=== PATIENT | female | born 1940 | race Caucasian/White ===

== ENCOUNTER 2017-05-03 10:59 | Emergency (ER) | payer OTHER ==
[2017-05-03 11:05] VITALS: TEMP 98; O2SAT 98
[2017-05-03 11:47] LABS: URINE BILIRUBIN NEGATIVE (NEGATIVE); URINE BLOOD NEGATIVE (NEGATIVE); URINE COLOR Straw (YELLOW); URINE GLUCOSE (UA) NORMAL (Normal); URINE KETONE NEGATIVE (NEGATIVE); URINE LEUKOCYTE ESTERASE TRACE Leu/uL (Negative); URINE PROTEIN NEGATIVE (NEGATIVE); URINE UROBILINOGEN NORMAL mg/dL (0.2-1.0); WBC URINE < 1 /hpf (0-5)
--- NOTE | 2017-05-03 12:12 | C.PDOC ---
History Of Present Illness 76 yr old female presents to the ER with complaints of vaginal irritation, itchiness and scant white discharge for the past 2 weeks, which is also associated with dysuria. Patient admits to being seen by PMD 1 week ago and was started on Cipro but no improvements. Patient denies fever, chills, nausea, vomiting, abdominal pain, back pain, hematuria, or any other active complaints. Ambulate to Ed for evaluation, not in any apparent distress. Time Seen by Provider: 05/03/17 11:07 Chief Complaint (Nursing): Female Genitourinary History Per: Patient History/Exam Limitations: no limitations Onset/Duration Of Symptoms: Days (2 weeks) Current Symptoms Are (Timing): Still Present Recent travel outside of the [place]: No Past Medical History Reviewed: Historical Data, Nursing Documentation, Vital Signs Vital Signs: Last Vital Signs Temp 98 F 05/03/17 11:04 Pulse 74 05/03/17 12:26 Resp 16 05/03/17 12:26 BP 145/71 05/03/17 12:26 Pulse Ox 98 05/03/17 12:40 - Medical History PMH: Anxiety, Arthritis, Asthma, Depression, Gastritis, Gall Bladder Disease, HTN, Hypercholesterolemia, Osteoporosis Surgical History: Cholecystectomy Family History: States: No Known Family Hx - Social History Hx Tobacco Use: No Hx Alcohol Use: No Hx Substance Use: No - Immunization History Hx Tetanus Toxoid Vaccination: No Hx Influenza Vaccination: No Hx Pneumococcal Vaccination: No Review Of Systems Except As Marked, All Systems Reviewed And Found Negative. Constitutional: Negative for: Fever, Chills Gastrointestinal: Negative for: Nausea, Vomiting, Abdominal Pain Genitourinary: Positive for: Dysuria, Vaginal Discharge (Scant white discharge) , Other ((+) Vaginal irritation. Itchiness.) Musculoskeletal: Negative for: Back Pain Neurological: Negative for: Weakness, Numbness Physical Exam - Physical Exam Appears: Well, Non-toxic, No Acute Distress Skin: Normal Color, Warm, Dry, No Rash Eye(s): bilateral: PERRL Nose: Normal Throat: No Erythema Gastrointestinal/Abdominal: Soft, No Tenderness, No Distention, No Guarding Back: No CVA Tenderness Pelvic: No Vaginal Bleeding, Vaginal Discharge (SCANT WHITE DISCHARGES), Other ( DIFFUSE ERYTHEMA EXTENDS TO ANAL AREA. SHARPLY DEMORCTAED EDGES. NO EDEMA) Extremity: No Pedal Edema, No Deformity Neurological/Psych: Oriented x3, Normal Speech ED Course And Treatment O2 Sat by Pulse Oximetry: 98 (RA) Pulse Ox Interpretation: Normal Progress Note: On re-eavl, pt is afebrile, hemodynamicalys table. non-toxic. ABd: benign, (-) guarding, (-) rebound, (-) localized tenderness. back: (-) CVA tenderness. : exam c/w vulvovaginitis. No lesions. UA results review (-) . Pt advised on course of ds. ref. to f/u with PMD and BOOMBOAT OPERATOR in 2-3 days for re- eavl. returnb to ED if any worsening or new changes. Medical Decision Making Medical Decision Making: PLAN: * Urinalysis Disposition Counseled Patient/Family Regarding: Studies Performed, Diagnosis, Need For Followup, Rx Given - Disposition Referrals: Nate Stearns DO [Staff Provider] - Disposition: HOME/ ROUTINE Disposition Time: 12:09 Condition: STABLE Additional Instructions: Cool compresses to area Use medication as prescribed Follow up with PMD and BOOMBOAT OPERATOR in 2-3 days for re-evaluation. Return to ED if any worsening or new changes. Prescriptions: Miconazole/Cleanser 17 On Wipe [Monistat 7 Combination Pack] 1 each VG HS #1 kit Instructions: Vulvovaginal Candidiasis (ED) Forms: [employer] (Lao) - Clinical Impression Clinical Impression: Vulvovaginal candidiasis - PA / MANAGER ANIMATION / Resident Statement / has reviewed & agrees with the documentation as recorded. - Scribe Statement The provider has reviewed the documentation as recorded by the Scribe Catherine Camacho All medical record entries made by the Scribe were at my direction and personally dictated by me. I have reviewed the chart and agree that the record accurately reflects my personal performance of the history, physical exam, medical decision making, and the department course for this patient. I have also personally directed, reviewed, and agree with the discharge instructions and disposition.
[2017-05-03 12:27] VITALS: BP 145/71; PULSE 74; RESP 16
== END 2017-05-03 12:26 | disposition home or self-care (01) ==
LOC: C.ER 10:59
DX: B37.3 Candidiasis of vulva and vagina (principal)

== ENCOUNTER 2017-06-14 13:33 | Inpatient (IN) | payer OTHER ==
--- NOTE | 2017-06-14 14:17 | C.PDOC ---
History Of Present Illness 76F c/o palpitations, lightheadedness, generalized weakness w assoc blurry vision, headache for the last 2 days. when asked if she has had these sx before she admits to having them for at least 5 years and attributes them to "a lot of nerves." she says she came today because her sx seemed worse today than usual. Time Seen by Provider: 06/14/17 13:50 Chief Complaint (Nursing): Palpitations Past Medical History Vital Signs: Last Vital Signs Temp 97.8 F 06/14/17 13:42 Pulse 70 06/14/17 17:15 Resp 14 06/14/17 17:15 BP 146/76 06/14/17 17:15 Pulse Ox 99 06/14/17 17:15 - Medical History PMH: Anxiety, Arthritis, Asthma, Depression, Gastritis, Gall Bladder Disease, HTN, Hypercholesterolemia, Osteoporosis Denies: Diabetes, Hepatitis, HIV, Chronic Kidney Disease, Seizures, Sexually Transmitted Disease Surgical History: Cholecystectomy Family History: States: Other Other Family History: nc - Social History Hx Tobacco Use: No Hx Alcohol Use: No Hx Substance Use: No - Immunization History Hx Tetanus Toxoid Vaccination: No Hx Influenza Vaccination: No Hx Pneumococcal Vaccination: No Review Of Systems Constitutional: Negative for: Fever, Chills Cardiovascular: Positive for: Palpitations, Light Headedness. Negative for: Chest Pain, Edema Respiratory: Negative for: Cough, Shortness of Breath, Hemoptysis Gastrointestinal: Negative for: Nausea, Vomiting, Abdominal Pain Neurological: Positive for: Headache. Negative for: Weakness, Numbness Psych: Positive for: Anxiety. Negative for: Depression Physical Exam - Physical Exam Appears: Well, Non-toxic Skin: Warm, Dry Head: Atraumatic Eye(s): bilateral: PERRL, EOMI Nose: No Epistaxis Oral Mucosa: Moist Neck: Normal ROM Cardiovascular: Rhythm Regular, No Murmur Respiratory: No Decreased Breath Sounds, No Accessory Muscle Use, No Rales, No Rhonchi, No Stridor, No Wheezing Gastrointestinal/Abdominal: Soft, No Tenderness Extremity: No Calf Tenderness, No Swelling Pulses: Left Radial: Normal, Right Radial: Normal Neurological/Psych: Oriented x3, Normal Cranial Nerves, No Cerebellar Signs, Normal Motor, Normal Sensation, Other (no focal deficits) ED Course And Treatment - Laboratory Results Result Diagrams: 06/14/17 14:17 06/14/17 15:24 O2 Sat by Pulse Oximetry: 100 Medical Decision Making Medical Decision Making: ct head- PROCEDURE: CT HEAD WITHOUT CONTRAST. HISTORY: Dizziness COMPARISON: None available. TECHNIQUE: Axial computed tomography images were obtained through the head/brain without intravenous contrast. Radiation dose: Total exam DLP = 813.06 mGy-cm. This CT exam was performed using one or more of the following dose reduction techniques: Automated exposure control, adjustment of the mA and/or kV according to patient size, and/or use of iterative reconstruction technique. FINDINGS: HEMORRHAGE: No intracranial hemorrhage. BRAIN: Lee-white matter differentiation is preserved. There is no mass, mass effect or abnormal extra-axial fluid collection there is no territorial infarction. VENTRICLES: There is mild age-related global parenchymal volume loss and proportionate enlargement of the ventricles and cortical sulci. . CALVARIUM: The skull base and calvarium are normal. PARANASAL SINUSES: Predominantly clear. MASTOID AIR CELLS: There is cerumen in bilateral external auditory canals. The left mastoid air cells are underdeveloped. OTHER FINDINGS: None. IMPRESSION: No acute intracranial abnormality. If there is a persistent focal neurologic deficit and an ongoing clinical concern for acute infarction, an MRI of the brain without intravenous contrast would be a more sensitive modality for evaluation of hyperacute/acute ischemic infarction. Mild age-related global parenchymal volume loss. Disposition - Disposition Disposition: HOSPITALIZED
[2017-06-14 14:20] LABS: BASO % 0.8 % (0.0-2.0); EOS # 0.3 K/uL (0.0-0.7); EOS % 7.8 % (0.0-4.0); HEMATOCRIT 39.2 % (34.0-47.0); LYMPH # 1.5 K/uL (1.0-4.3); LYMPH % 35.8 % (20.0-40.0); MEAN CELL VOLUME 87.6 fL (81.0-99.0); MEAN CORPUSCULAR HEMOGLOBIN 29.7 pg (27.0-31.0); MEAN CORPUSCULAR HGB CONC 33.9 g/dL (33.0-37.0); MEAN PLATELET VOLUME 9.1 fL (7.2-11.7); MONO # 0.4 K/uL (0.0-0.8); MONO % 8.8 % (0.0-10.0); NRBC % 0.1 % (0.0-2.0); WHITE BLOOD COUNT 4.3 K/uL (4.8-10.8)
--- NOTE | 2017-06-14 14:48 | CT ---
PROCEDURE: CT HEAD WITHOUT CONTRAST. HISTORY: Dizziness COMPARISON: None available. TECHNIQUE: Axial computed tomography images were obtained through the head/brain without intravenous contrast. Radiation dose: Total exam DLP = 813.06 mGy-cm. This CT exam was performed using one or more of the following dose reduction techniques: Automated exposure control, adjustment of the mA and/or kV according to patient size, and/or use of iterative reconstruction technique. FINDINGS: HEMORRHAGE: No intracranial hemorrhage. BRAIN: Lee-white matter differentiation is preserved. There is no mass, mass effect or abnormal extra-axial fluid collection there is no territorial infarction. VENTRICLES: There is mild age-related global parenchymal volume loss and proportionate enlargement of the ventricles and cortical sulci. . CALVARIUM: The skull base and calvarium are normal. PARANASAL SINUSES: Predominantly clear. MASTOID AIR CELLS: There is cerumen in bilateral external auditory canals. The left mastoid air cells are underdeveloped. OTHER FINDINGS: None. IMPRESSION: No acute intracranial abnormality. If there is a persistent focal neurologic deficit and an ongoing clinical concern for acute infarction, an MRI of the brain without intravenous contrast would be a more sensitive modality for evaluation of hyperacute/acute ischemic infarction. Mild age-related global parenchymal volume loss.
[2017-06-14 15:43] LABS: CHLORIDE 101 mmol/L (98-107); POTASSIUM 4.1 mmol/L (3.6-5.2); SODIUM 137 mmol/L (132-148)
[2017-06-14 15:45] LABS: GFR AFRICAN-AMERICAN > 60
[2017-06-14 15:46] LABS: ALB/GLOB RATIO 1.1 (1.0-2.1); ALKALINE PHOSPHATASE 58 U/L (38-126); ALT/SGPT 29 U/L (9-52); AST/SGOT 23 U/L (14-36); BILIRUBIN,TOTAL 0.7 mg/dL (0.2-1.3); BLOOD UREA NITROGEN 15 mg/dL (7-17); CALCIUM 9.4 mg/dl (8.6-10.4); CARBON DIOXIDE 23 mmol/L (22-30); GLUCOSE,RANDOM 104 mg/dL (65-105); TOTAL PROTEIN 8.8 g/dL (6.3-8.3)
[2017-06-14 16:21] LABS: RBC URINE < 1 /hpf (0-3); TRANSITIONAL EPITHIAL < 1 /hpf (0-3); URINE BACTERIA RARE (<OCC); URINE BILIRUBIN NEGATIVE (NEGATIVE); URINE BLOOD NEGATIVE (NEGATIVE); URINE COLOR Straw (YELLOW); URINE GLUCOSE (UA) NORMAL (Normal); URINE KETONE NEGATIVE (NEGATIVE); URINE PROTEIN NEGATIVE (NEGATIVE); URINE UROBILINOGEN NORMAL mg/dL (0.2-1.0); WBC URINE 4 /hpf (0-5)
[2017-06-14 16:24] LABS: URINE LEUKOCYTE ESTERASE TRACE Leu/uL (Negative)
[2017-06-14] MEDS ORDERED: DiphenhydrAMINE 50 mg/ml Inj IVP STA (16:31)
[2017-06-14] MEDS ORDERED: DiphenhydrAMINE 50 mg/ml Inj ONE (16:54)
[2017-06-14] MEDS ORDERED: Pneumococcal 23-Valent Vaccine IM ONE (19:29)
[2017-06-14] MEDS ORDERED: Albuterol HFA 90 mcg/actuation (8 g) INH PRN (19:39)
--- NOTE | 2017-06-14 20:22 | CP.PCM.CON ---
History of Present Illness - History of Present Illness History of Present Illness: 76 F with hx of HTN and depression admitted for chest pain and dizziness Past Patient History - Past Medical History & Family History Past Medical History?: Yes - Past Social History Smoking Status: Never Smoked - CARDIAC Hx Cardiac Disorders: Yes Hx Hypercholesterolemia: Yes Hx Hypertension: Yes - PULMONARY Hx Respiratory Disorders: Yes Hx Asthma: Yes - NEUROLOGICAL Hx Neurological Disorder: No Hx Seizures: No - HEENT Hx HEENT Problems: Yes Hx Cataracts: Yes (surgery) - RENAL Hx Chronic Kidney Disease: No - ENDOCRINE/METABOLIC Hx Endocrine Disorders: No - HEMATOLOGICAL/ONCOLOGICAL Hx Blood Disorders: No Hx Human Immunodeficiency Virus (HIV): No - INTEGUMENTARY Hx Dermatological Problems: No - MUSCULOSKELETAL/RHEUMATOLOGICAL Hx Musculoskeletal Disorders: Yes Hx Arthritis: Yes Hx Falls: No Hx Osteoporosis: Yes - GASTROINTESTINAL Hx Gastrointestinal Disorders: Yes Hx Gall Bladder Disease: Yes Hx Gastritis: Yes - GENITOURINARY/GYNECOLOGICAL Hx Genitourinary Disorders: No Hx Sexually Transmitted Disorders: No (candidiasis) - PSYCHIATRIC Hx Psychophysiologic Disorder: Yes Hx Anxiety: Yes Hx Depression: Yes Hx Substance Use: No - SURGICAL HISTORY Hx Surgeries: Yes Hx Cholecystectomy: Yes - ANESTHESIA Hx Anesthesia: Yes Hx Anesthesia Reactions: No Meds Allergies/Adverse Reactions: Allergies Allergy/AdvReac Type Severity Reaction Status Date / Time No Known Allergies Allergy Verified 05/03/17 11:25 - Medications Medications: Current Medications Albuterol (Ventolin Hfa 90 Mcg/Actuation (8 G)) 2 puff INH Q4 PRN PRN Reason: Shortness of Breath Alprazolam (Xanax) 0.25 mg PO Q8 PRN PRN Reason: Anxiety Stop: 06/21/17 19:40 Aspirin (Aspirin Chewable) 81 mg PO DAILY [facility] Clopidogrel Bisulfate (Plavix) 75 mg PO DAILY [facility] Hydrochlorothiazide (Microzide) 12.5 mg PO DAILY [facility] Lisinopril (Zestril) 20 mg PO DAILY [facility] Metoprolol Succinate (Toprol Xl) 50 mg PO DAILY [facility] Pantoprazole Sodium (Protonix Ec Tab) 40 mg PO DAILY [facility] Rosuvastatin Calcium (Crestor) 10 mg PO DAILY [facility] Sertraline HCl (Zoloft) 50 mg PO BID [facility] Zolpidem Tartrate (Ambien) 5 mg PO HS [facility] Results - Vital Signs Recent Vital Signs: Last Vital Signs Temp 98.1 F 06/14/17 17:54 Pulse 80 06/14/17 18:55 Resp 20 06/14/17 17:54 BP 153/78 H 06/14/17 17:54 Pulse Ox 98 06/14/17 17:54 - Labs Result Diagrams: 06/14/17 14:17 06/14/17 15:24 Labs: Laboratory Results - last 24 hr 06/14/17 06/14/17 06/14/17 14:17 14:17 15:24 WBC 4.3 L RBC 4.47 Hgb 13.3 Hct 39.2 MCV 87.6 MCH 29.7 MCHC 33.9 RDW 14.0 Plt Count 173 MPV 9.1 Neut % (Auto) 46.8 L Lymph % (Auto) 35.8 [place] % (Auto) 8.8 Eos % (Auto) 7.8 H Baso % (Auto) 0.8 Neut # 2.0 Lymph # 1.5 [place] # 0.4 Eos # 0.3 Baso # 0.0 Sodium 137 Potassium 4.1 Chloride 101 Carbon Dioxide 23 Anion Gap 18 BUN 15 Creatinine 0.8 Est GFR ( Amer) > 60 Est GFR (Non-Af Amer) > 60 Random Glucose 104 Calcium 9.4 Magnesium 2.0 Total Bilirubin 0.7 AST 23 ALT 29 Alkaline Phosphatase 58 Troponin I < 0.0120 NT-Pro-B Natriuret Pep 46.1 Total Protein 8.8 H Albumin 4.6 Globulin 4.2 H Albumin/Globulin Ratio 1.1 TSH 3rd Generation 2.19 Urine Color Urine Clarity Urine pH Ur Specific [employer] Urine Protein Urine Glucose (UA) Urine Ketones Urine Blood Urine Nitrate Urine Bilirubin Urine Urobilinogen Ur Leukocyte Esterase Urine WBC (Auto) Urine RBC (Auto) Ur Squamous Epith Cells Ur Transition Epith Cell Urine Bacteria 06/14/17 16:13 WBC RBC Hgb Hct MCV MCH MCHC RDW Plt Count MPV Neut % (Auto) Lymph % (Auto) [place] % (Auto) Eos % (Auto) Baso % (Auto) Neut # Lymph # [place] # Eos # Baso # Sodium Potassium Chloride Carbon Dioxide Anion Gap BUN Creatinine Est GFR ( Amer) Est GFR (Non-Af Amer) Random Glucose Calcium Magnesium Total Bilirubin AST ALT Alkaline Phosphatase Troponin I NT-Pro-B Natriuret Pep Total Protein Albumin Globulin Albumin/Globulin Ratio TSH 3rd Generation Urine Color Straw Urine Clarity Clear Urine pH 8.0 Ur Specific [employer] 1.008 Urine Protein Negative Urine Glucose (UA) Normal Urine Ketones Negative Urine Blood Negative Urine Nitrate Negative Urine Bilirubin Negative Urine Urobilinogen Normal Ur Leukocyte Esterase Trace H Urine WBC (Auto) 4 Urine RBC (Auto) < 1 Ur Squamous Epith Cells 3 Ur Transition Epith Cell < 1 Urine Bacteria Rare
[2017-06-15] MEDS: Pantoprazole 40 mg EC Tab PO SCH (10:52)
[2017-06-15] MEDS: Metoprolol Succinate 50 mg XL Tab PO SCH (10:53)
[2017-06-15] MEDS: Enoxaparin 40 mg Syringe SC SCH (10:53)
--- NOTE | 2017-06-15 15:06 | CARD ---
APPROVED REPORT EXAM: Two-dimensional and M-mode echocardiogram with Doppler and color Doppler. M-Mode DIMENSIONS RVDd1.77 (2.1-3.2cm)Left Atrium (MM)4.45 (2.5-4.0cm) IVSd1.07 (0.7-1.1cm)Aortic Root2.54 (2.2-3.7cm) LVDd3.95 (4.0-5.6cm)Aortic Cusp Exc.1.21 (1.5-2.0cm) PWd1.14 (0.7-1.1cm)FS (%) 41 % LVDs2.32 (2.0-3.8cm)LVEF (%)73 (>50%) Mitral Valve MV E Pwzeozhc29.8cm/sMV A Vwjdojse62.7cm/sE/A ratio0.6 TDI E/Lateral E'0.0E/Medial E'0.0 Tricuspid Valve TR Peak [id number]/sTR Peak [id number] LEFT VENTRICLE The left ventricle is normal size. There is normal left ventricular wall thickness. The left ventricular function is normal. The left ventricular ejection fraction is within the normal range. There is normal LV segmental wall motion. Tissue Doppler imaging reveals mild left ventricular diastolic dysfunction. Transmitral Doppler flow pattern is Grade I-abnormal relaxation pattern. No left ventricle thrombus noted on this study. There is no ventricular septal defect visualized. There is no left ventricular aneurysm. There is no mass noted in the left ventricle. RIGHT VENTRICLE The right ventricle is normal size. There is normal right ventricular wall thickness. The right ventricular systolic function is normal. ATRIA The left atrium is mildly dilated. The right atrium size is normal. The interatrial septum is intact with no evidence for an atrial septal defect. AORTIC VALVE The aortic valve is normal in structure. No aortic regurgitation is present. There is no aortic valvular stenosis. There is no aortic valvular vegetation. MITRAL VALVE The mitral valve is normal in structure. There is no mitral valve stenosis. There is no mitral valve regurgitation noted. TRICUSPID VALVE The tricuspid valve is normal in structure. There is no tricuspid valve regurgitation noted. PULMONIC VALVE The pulmonary valve is normal in structure. There is mild pulmonic valvular regurgitation. GREAT VESSELS The aortic root is normal in size. The ascending aorta is normal in size. The pulmonary artery is normal. PERICARDIAL EFFUSION There is no pericardial effusion. <Conclusion> Tissue Doppler imaging reveals mild left ventricular diastolic dysfunction. Transmitral Doppler flow pattern is Grade I-abnormal relaxation pattern. The left atrium is mildly dilated. There is mild pulmonic valvular regurgitation.
--- NOTE | 2017-06-15 17:57 | CP.PCM.HP ---
Past Patient History - Past Medical History & Family History Past Medical History?: Yes - Past Social History Smoking Status: Never Smoked - CARDIAC Hx Cardiac Disorders: Yes Hx Hypercholesterolemia: Yes Hx Hypertension: Yes - PULMONARY Hx Respiratory Disorders: Yes Hx Asthma: Yes - NEUROLOGICAL Hx Neurological Disorder: No Hx Seizures: No - HEENT Hx HEENT Problems: Yes Hx Cataracts: Yes (surgery) - RENAL Hx Chronic Kidney Disease: No - ENDOCRINE/METABOLIC Hx Endocrine Disorders: No - HEMATOLOGICAL/ONCOLOGICAL Hx Blood Disorders: No Hx Human Immunodeficiency Virus (HIV): No - INTEGUMENTARY Hx Dermatological Problems: No - MUSCULOSKELETAL/RHEUMATOLOGICAL Hx Musculoskeletal Disorders: Yes Hx Arthritis: Yes Hx Falls: No Hx Osteoporosis: Yes - GASTROINTESTINAL Hx Gastrointestinal Disorders: Yes Hx Gall Bladder Disease: Yes Hx Gastritis: Yes - GENITOURINARY/GYNECOLOGICAL Hx Genitourinary Disorders: No Hx Sexually Transmitted Disorders: No (candidiasis) - PSYCHIATRIC Hx Psychophysiologic Disorder: Yes Hx Anxiety: Yes Hx Depression: Yes Hx Substance Use: No - SURGICAL HISTORY Hx Surgeries: Yes Hx Cholecystectomy: Yes - ANESTHESIA Hx Anesthesia: Yes Hx Anesthesia Reactions: No Meds Allergies/Adverse Reactions: Allergies Allergy/AdvReac Type Severity Reaction Status Date / Time No Known Allergies Allergy Verified 05/03/17 11:25 Results - Vital Signs Recent Vital Signs: Last Vital Signs Temp 98.4 F 06/15/17 16:00 Pulse 71 06/15/17 16:00 Resp 18 06/15/17 16:00 BP 145/71 06/15/17 16:00 Pulse Ox 98 06/15/17 16:00 - Labs Result Diagrams: 06/14/17 14:17 06/14/17 15:24 Labs: Laboratory Results - last 24 hr 06/15/17 07:10 Troponin I < 0.0120
--- NOTE | 2017-06-15 22:00 | CP.PCM.PN ---
Subjective - Date & Time of Evaluation Date of Evaluation: 06/15/17 Time of Evaluation: 17:30 - Subjective Subjective: Patient admitted for chest pain Stress test Saturday Objective - Vital Signs/Intake and Output Vital Signs (last 24 hours): Temp Pulse Resp BP Pulse Ox 98.4 F 71 18 145/71 98 06/15/17 16:00 06/15/17 21:39 06/15/17 16:00 06/15/17 16:00 06/15/17 16:00 - Medications Medications: Current Medications Acetaminophen (Tylenol 325mg Tab) 650 mg PO Q6 PRN PRN Reason: Pain, Mild (1-3) Last Admin: 06/15/17 20:25 Dose: 650 mg Albuterol (Ventolin Hfa 90 Mcg/Actuation (8 G)) 2 puff INH Q4 PRN PRN Reason: Shortness of Breath Alprazolam (Xanax) 0.25 mg PO Q8 PRN PRN Reason: Anxiety Stop: 06/21/17 19:40 Last Admin: 06/15/17 20:25 Dose: 0.25 mg Aspirin (Aspirin Chewable) 81 mg PO DAILY [facility] Last Admin: 06/15/17 10:53 Dose: 81 mg Clopidogrel Bisulfate (Plavix) 75 mg PO DAILY [facility] Last Admin: 06/15/17 10:53 Dose: 75 mg Enoxaparin Sodium (Lovenox) 40 mg SC DAILY [facility] Last Admin: 06/15/17 10:53 Dose: 40 mg Hydrochlorothiazide (Microzide) 12.5 mg PO DAILY [facility] Last Admin: 06/15/17 10:53 Dose: 12.5 mg Lisinopril (Zestril) 20 mg PO DAILY [facility] Last Admin: 06/15/17 10:52 Dose: 20 mg Metoprolol Succinate (Toprol Xl) 50 mg PO DAILY [facility] Last Admin: 06/15/17 10:53 Dose: 50 mg Pantoprazole Sodium (Protonix Ec Tab) 40 mg PO DAILY [facility] Last Admin: 06/15/17 10:52 Dose: 40 mg Rosuvastatin Calcium (Crestor) 10 mg PO HS [facility] Sertraline HCl (Zoloft) 50 mg PO BID [facility] Last Admin: 06/15/17 18:22 Dose: 50 mg Zolpidem Tartrate (Ambien) 5 mg PO HS [facility] Last Admin: 06/15/17 21:40 Dose: 5 mg - Labs Labs: 06/14/17 14:17 06/14/17 15:24
[2017-06-16] MEDS ORDERED: Influenza Vaccine 60 mcg/0.5 mL SYR (4YR UP) IM ONE (10:00)
[2017-06-16] MEDS: Enoxaparin 40 mg Syringe SC SCH (10:51)
[2017-06-16] MEDS: Metoprolol Succinate 50 mg XL Tab PO SCH (10:51)
[2017-06-16] MEDS: Pantoprazole 40 mg EC Tab PO SCH (10:51)
--- NOTE | 2017-06-16 17:28 | CP.PCM.PN ---
Objective - Vital Signs/Intake and Output Vital Signs (last 24 hours): Temp Pulse Resp BP Pulse Ox 97.9 F 80 18 137/77 98 06/16/17 07:56 06/16/17 17:06 06/16/17 07:56 06/16/17 07:56 06/16/17 12:22 - Medications Medications: Current Medications Acetaminophen (Tylenol 325mg Tab) 650 mg PO Q6 PRN PRN Reason: Pain, Mild (1-3) Last Admin: 06/16/17 05:06 Dose: 650 mg Albuterol (Ventolin Hfa 90 Mcg/Actuation (8 G)) 2 puff INH Q4 PRN PRN Reason: Shortness of Breath Alprazolam (Xanax) 0.25 mg PO Q8 PRN PRN Reason: Anxiety Stop: 06/21/17 19:40 Last Admin: 06/15/17 20:25 Dose: 0.25 mg Aspirin (Aspirin Chewable) [address] [facility] Last Admin: 06/16/17 10:50 Dose: 81 mg Clopidogrel Bisulfate (Plavix) [address] [facility] Last Admin: 06/16/17 10:51 Dose: 75 mg Enoxaparin Sodium (Lovenox) [address] [facility] Last Admin: 06/16/17 10:51 Dose: 40 mg Hydrochlorothiazide (Microzide) 12.[address] [facility] Last Admin: 06/16/17 10:50 Dose: 12.5 mg Lisinopril (Zestril) [address] [facility] Last Admin: 06/16/17 10:51 Dose: 20 mg Metoprolol Succinate (Toprol Xl) [address] [facility] Last Admin: 06/16/17 10:51 Dose: 50 mg Pantoprazole Sodium (Protonix Ec Tab) [address] [facility] Last Admin: 06/16/17 10:51 Dose: 40 mg Rosuvastatin Calcium (Crestor) [address] [facility] Last Admin: 06/15/17 22:30 Dose: 10 mg Sertraline HCl (Zoloft) [address] [facility] Last Admin: 06/16/17 10:51 Dose: 50 mg Zolpidem Tartrate (Ambien) [address] [facility] Last Admin: 06/15/17 21:40 Dose: 5 mg - Labs Labs: 06/14/17 14:17 06/14/17 15:24
[2017-06-16 17:38] VITALS: RESP 20
--- NOTE | 2017-06-16 17:54 | CP.PCM.PN ---
Subjective - Date & Time of Evaluation Date of Evaluation: 06/16/17 Time of Evaluation: 09:45 - Subjective Subjective: Patient seen and evaluated Currently chest pain free For stress test in am Objective - Vital Signs/Intake and Output Vital Signs (last 24 hours): Temp Pulse Resp BP Pulse Ox 98 F 80 20 136/74 97 06/16/17 15:45 06/16/17 17:06 06/16/17 15:45 06/16/17 15:45 06/16/17 15:45 - Medications Medications: Current Medications Acetaminophen (Tylenol 325mg Tab) 650 mg PO Q6 PRN PRN Reason: Pain, Mild (1-3) Last Admin: 06/16/17 05:06 Dose: 650 mg Albuterol (Ventolin Hfa 90 Mcg/Actuation (8 G)) 2 puff INH Q4 PRN PRN Reason: Shortness of Breath Alprazolam (Xanax) 0.25 mg PO Q8 PRN PRN Reason: Anxiety Stop: 06/21/17 19:40 Last Admin: 06/15/17 20:25 Dose: 0.25 mg Aspirin (Aspirin Chewable) 81 mg PO DAILY [facility] Last Admin: 06/16/17 10:50 Dose: 81 mg Clopidogrel Bisulfate (Plavix) 75 mg PO DAILY [facility] Last Admin: 06/16/17 10:51 Dose: 75 mg Enoxaparin Sodium (Lovenox) 40 mg SC DAILY [facility] Last Admin: 06/16/17 10:51 Dose: 40 mg Hydrochlorothiazide (Microzide) 12.5 mg PO DAILY [facility] Last Admin: 06/16/17 10:50 Dose: 12.5 mg Lisinopril (Zestril) 20 mg PO DAILY [facility] Last Admin: 06/16/17 10:51 Dose: 20 mg Metoprolol Succinate (Toprol Xl) 50 mg PO DAILY [facility] Last Admin: 06/16/17 10:51 Dose: 50 mg Pantoprazole Sodium (Protonix Ec Tab) 40 mg PO DAILY [facility] Last Admin: 06/16/17 10:51 Dose: 40 mg Rosuvastatin Calcium (Crestor) 10 mg PO HS [facility] Last Admin: 06/15/17 22:30 Dose: 10 mg Sertraline HCl (Zoloft) 50 mg PO BID [facility] Last Admin: 06/16/17 10:51 Dose: 50 mg Zolpidem Tartrate (Ambien) 5 mg PO HS [facility] Last Admin: 06/15/17 21:40 Dose: 5 mg - Labs Labs: 06/14/17 14:17 06/14/17 15:24
[2017-06-17] MEDS ORDERED: Aminophylline 25 mg/ml Inj ONE (07:21)
[2017-06-17] MEDS: Pantoprazole 40 mg EC Tab PO SCH (13:59)
[2017-06-17] MEDS: Enoxaparin 40 mg Syringe SC SCH (13:59)
[2017-06-17] MEDS: Metoprolol Succinate 50 mg XL Tab PO SCH (14:00)
--- NOTE | 2017-06-17 15:10 | RAD ---
HISTORY: dizzy COMPARISON: 10/24/2014 FINDINGS: LUNGS: No active pulmonary disease. PLEURA: No significant pleural effusion identified, no pneumothorax apparent. CARDIOVASCULAR: Calcification at the aortic knob. OSSEOUS STRUCTURES: No significant abnormalities. VISUALIZED UPPER ABDOMEN: Normal. OTHER FINDINGS: None. IMPRESSION: No active disease.
--- NOTE | 2017-06-17 20:46 | CP.PCM.PN ---
Subjective - Date & Time of Evaluation Date of Evaluation: 06/17/17 Time of Evaluation: 20:46 Objective - Vital Signs/Intake and Output Vital Signs (last 24 hours): Temp Pulse Resp BP Pulse Ox 98.1 F 68 20 124/72 97 06/17/17 15:00 06/17/17 15:30 06/17/17 15:00 06/17/17 15:00 06/17/17 15:00 - Medications Medications: Current Medications Acetaminophen (Tylenol 325mg Tab) 650 mg PO Q6 PRN PRN Reason: Pain, Mild (1-3) Last Admin: 06/16/17 05:06 Dose: 650 mg Albuterol (Ventolin Hfa 90 Mcg/Actuation (8 G)) 2 puff INH Q4 PRN PRN Reason: Shortness of Breath Alprazolam (Xanax) 0.25 mg PO Q8 PRN PRN Reason: Anxiety Stop: 06/21/17 19:40 Last Admin: 06/15/17 20:25 Dose: 0.25 mg Aspirin (Aspirin Chewable) 81 mg PO DAILY [facility] Last Admin: 06/17/17 13:59 Dose: Not Given Clopidogrel Bisulfate (Plavix) 75 mg PO DAILY [facility] Last Admin: 06/17/17 13:59 Dose: Not Given Enoxaparin Sodium (Lovenox) 40 mg SC DAILY [facility] Last Admin: 06/17/17 13:59 Dose: Not Given Hydrochlorothiazide (Microzide) 12.5 mg PO DAILY [facility] Last Admin: 06/17/17 13:59 Dose: Not Given Lisinopril (Zestril) 20 mg PO DAILY [facility] Last Admin: 06/17/17 14:00 Dose: Not Given Metoprolol Succinate (Toprol Xl) 50 mg PO DAILY [facility] Last Admin: 06/17/17 14:00 Dose: Not Given Pantoprazole Sodium (Protonix Ec Tab) 40 mg PO DAILY [facility] Last Admin: 06/17/17 13:59 Dose: Not Given Rosuvastatin Calcium (Crestor) 10 mg PO HS [facility] Last Admin: 06/16/17 21:29 Dose: 10 mg Sertraline HCl (Zoloft) 50 mg PO BID [facility] Last Admin: 06/17/17 14:00 Dose: Not Given Zolpidem Tartrate (Ambien) 5 mg PO HS [facility] Last Admin: 06/16/17 21:29 Dose: 5 mg - Labs Labs: 06/14/17 14:17 06/14/17 15:24
--- NOTE | 2017-06-17 21:43 | CP.PCM.PN ---
Subjective - Date & Time of Evaluation Date of Evaluation: 06/17/17 Time of Evaluation: 16:10 - Subjective Subjective: Patient s/p Stress test and ECHO Normal stress test and Normal EF Non cardiac chest pain Cardiac point of view cleared for discharge Objective - Vital Signs/Intake and Output Vital Signs (last 24 hours): Temp Pulse Resp BP Pulse Ox 98.1 F 68 20 124/72 97 06/17/17 15:00 06/17/17 15:30 06/17/17 15:00 06/17/17 15:00 06/17/17 15:00 - Medications Medications: Current Medications Acetaminophen (Tylenol 325mg Tab) 650 mg PO Q6 PRN PRN Reason: Pain, Mild (1-3) Last Admin: 06/16/17 05:06 Dose: 650 mg Albuterol (Ventolin Hfa 90 Mcg/Actuation (8 G)) 2 puff INH Q4 PRN PRN Reason: Shortness of Breath Alprazolam (Xanax) 0.25 mg PO Q8 PRN PRN Reason: Anxiety Stop: 06/21/17 19:40 Last Admin: 06/15/17 20:25 Dose: 0.25 mg Aspirin (Aspirin Chewable) 81 mg PO DAILY [facility] Last Admin: 06/17/17 13:59 Dose: Not Given Enoxaparin Sodium (Lovenox) 40 mg SC DAILY [facility] Last Admin: 06/17/17 13:59 Dose: Not Given Hydrochlorothiazide (Microzide) 12.5 mg PO DAILY [facility] Last Admin: 06/17/17 13:59 Dose: Not Given Lisinopril (Zestril) 20 mg PO DAILY [facility] Last Admin: 06/17/17 14:00 Dose: Not Given Metoprolol Succinate (Toprol Xl) 50 mg PO DAILY [facility] Last Admin: 06/17/17 14:00 Dose: Not Given Pantoprazole Sodium (Protonix Ec Tab) 40 mg PO DAILY [facility] Last Admin: 06/17/17 13:59 Dose: Not Given Rosuvastatin Calcium (Crestor) 10 mg PO HS [facility] Last Admin: 06/17/17 21:22 Dose: 10 mg Sertraline HCl (Zoloft) 50 mg PO BID [facility] Last Admin: 06/17/17 19:00 Dose: 50 mg Zolpidem Tartrate (Ambien) 5 mg PO HS [facility] Last Admin: 06/16/17 21:29 Dose: 5 mg - Labs Labs: 06/14/17 14:17 06/14/17 15:24
--- NOTE | 2017-06-18 00:33 | CARD ---
APPROVED REPORT Protocol: LEXISCAN Test Type: LEXISCAN STRESS Test Indications: CP Target HR: 142 bpm Resting ECG: normal Resting Heart Rate: 58 bpm Resting Blood Pressure: 122/80mmHg submaximum (85%): 121 bpm TEST SUMMARY PREINFSNHYPERV.06:[id number]/80.0. INFUSIONDOSE 100:300.00.01.060/.0. WZSCLBJVT34:[id number]/80.0. PROCEDURE Pharmacologic stress testing was performed using 0.4mg per 5ml of regadenoson given intravenously over 7-10 seconds. POST EXERCISE Target HR: No Max HR: 60 bpm 72% of Maximum Predicted HR: 142 bpm Exercise duration: 00:30 min:sec, 0 Stage Exercise capacity: 1.0METs Max Blood Pressure: 122/80mmHg Chest Pain: No, none Angina index: 0 Arrhythmia: Yes, atrial premature beats ST Change: No, none Deviation: 0 mm INTERPRETATION Stress EKG Conclusion: Nondiagnostic stress test EXAM: Myocardial Perfusion REST/STRESS Imaging Protocol The imaging protocol used to acquire images was Rest Tc-99m/stress Tc-99m 1 day Rest Spect myocardial perfusion imaging was performed in supine position 40 minutes following the injection of 13.1 mCi of Tc-99 Myoview. Gated Stress Spect was performed 41 minutes after intravenous 32.9 mCi Tc-99 Myoview injection. The images were gated to evaluate regional wall motion and calculate ventricular ejection fraction.Images were reconstructed using backfilter projection method in short horizontal and verticle long axis. Spect slices were generated. RESTING DATA EDV48.41rlAL9.70L/min ESV7.00mlMyocardial Mass94.00g Av. Heart Rate67.00bpm EF85.00% STRESS DATA EDV50.85qoDV2.30L/min ESV7.00mlMyocardial Mass97.00g EF86.00% Regional WT score at stress:0.00 Regional WM score at stress:0.00 Summed WT score at stress:1.00 Av. Heart Rate76.00bpmSummed WM score at stress:0.00 LV Perf. Quant 17 Seg. SSS0.00 17 Seg. SRS0.00 17 Seg. SDS0.00 Stress Defect Extent (% LAD)0.00Rest Defect Extent (% LAD)0.00Rev. Defect Extent (% LAD)0.00 Stress Defect Extent (% LCX)0.00Rest Defect Extent (% LCX)0.00Rev. Defect Extent (% LCX)0.00 Stress Defect Extent (% RCA)0.00Rest Defect Extent (% RCA)0.00Rev. Defect Extent (% RCA)0.00 Stress Defect Extent (% NIKOS)0.00Rest Defect Extent (% NIKOS)0.00Rev. Defect Extent (% NIKOS)0.00 Left Ventricle LV Size/Shape: The left ventricle is normal size. LV Function:Left ventricle systolic function is normal. The Ejection Fraction is 86% up from 85% at rest. Regional Wall Motion:No regional wall motion abnormalities noted. Metabolism/Perfusion There are no perfusion/metabolism defects. Conclusion 1. Left ventricle systolic function is normal. 2. The Ejection Fraction is 86% up from 85% at rest. 3. No regional wall motion abnormalities noted. 4. No ischemia.
[2017-06-18 08:30] VITALS: BP 128/66; PULSE 68; TEMP 98.4; O2SAT 99
[2017-06-18] MEDS: Pantoprazole 40 mg EC Tab PO SCH (09:32)
[2017-06-18] MEDS: Metoprolol Succinate 50 mg XL Tab PO SCH (09:32)
[2017-06-18] MEDS: Enoxaparin 40 mg Syringe SC SCH (09:33)
--- NOTE | 2017-06-18 12:42 | CARD ---
APPROVED REPORT EKG Measurement Heart [id number] DC 180P57 [id number] <Conclusion> Normal sinus rhythm Normal ECG
--- NOTE | 2017-06-18 13:33 | CP.PCM.PN ---
Subjective - Date & Time of Evaluation Date of Evaluation: 06/18/17 Time of Evaluation: 13:32 - Subjective Subjective: PATIENT WAS ADMITTED FOR CHEST PAIN. Patient states that she feels much better and that her breathing has significantly improved. Denies chest pain, cough, shortness of breath, nausea, vomiting and palpitations. Objective - Vital Signs/Intake and Output Vital Signs (last 24 hours): Temp Pulse Resp BP Pulse Ox 98.4 F 68 20 128/66 99 06/18/17 07:00 06/18/17 07:00 06/18/17 07:00 06/18/17 07:00 06/18/17 07:00 - Medications Medications: Current Medications Acetaminophen (Tylenol 325mg Tab) 650 mg PO Q6 PRN PRN Reason: Pain, Mild (1-3) Last Admin: 06/16/17 05:06 Dose: 650 mg Albuterol (Ventolin Hfa 90 Mcg/Actuation (8 G)) 2 puff INH Q4 PRN PRN Reason: Shortness of Breath Alprazolam (Xanax) 0.25 mg PO Q8 PRN PRN Reason: Anxiety Stop: 06/21/17 19:40 Last Admin: 06/15/17 20:25 Dose: 0.25 mg Aspirin (Aspirin Chewable) 81 mg PO DAILY [facility] Last Admin: 06/18/17 09:33 Dose: 81 mg Enoxaparin Sodium (Lovenox) 40 mg SC DAILY [facility] Last Admin: 06/18/17 09:33 Dose: 40 mg Hydrochlorothiazide (Microzide) 12.5 mg PO DAILY [facility] Last Admin: 06/18/17 09:32 Dose: 12.5 mg Lisinopril (Zestril) 20 mg PO DAILY [facility] Last Admin: 06/18/17 09:32 Dose: 20 mg Metoprolol Succinate (Toprol Xl) 50 mg PO DAILY [facility] Last Admin: 06/18/17 09:32 Dose: 50 mg Pantoprazole Sodium (Protonix Ec Tab) 40 mg PO DAILY [facility] Last Admin: 06/18/17 09:32 Dose: 40 mg Rosuvastatin Calcium (Crestor) 10 mg PO HS [facility] Last Admin: 06/17/17 21:22 Dose: 10 mg Sertraline HCl (Zoloft) 50 mg PO BID [facility] Last Admin: 11/14/17 09:32 Dose: 50 mg Zolpidem Tartrate (Ambien) 5 mg PO HS [facility] Last Admin: 06/17/17 22:16 Dose: 5 mg - Labs Labs: 06/14/17 14:17 06/14/17 15:24 - Eye Exam Eye Exam: Normal appearance Pupil Exam: NORMAL ACCOMODATION - Respiratory Exam Respiratory Exam: Clear to Ausculation Bilateral - Cardiovascular Exam Cardiovascular Exam: REGULAR RHYTHM Assessment and Plan - Assessment and Plan (Free Text) Assessment: Patient seen and evaluated Currently chest pain free Normal stress test and Normal EF ; Non cardiac chest pain Cardiac point of view cleared for discharge; PER DR CASON PATIENT IS CLEAR TO DC FOLLOW UP WITH DR HAIRSTON IN A WEEK AT HIS OFFICE -----CALL OFFICE FOR APPOINTMENT FOLLOW UP WITH YOUR PRIMARY CERAMIC TILER DR SEWELL IN A WEEK --CALL OFFICE FOR APPOINTMENT ASK FOR POSSIBLE HOLTER MONITOR OUT PATIENT CONTINUE HOME MEDICATION MED RECS CALL YOUR PMD DR HAIRSTON OR GO THE NEAREST EMERGENCY ROOM IF SYMPTOMS RETURN OR WORSENING
--- NOTE | 2017-06-18 22:02 | CP.PCM.DIS ---
Provider - Provider Date of Admission: 06/15/17 14:24 Attending physician: Durga Flannery MD [facility] Course - Lab Results Lab Results: Most Recent Lab Values WBC 4.3 K/uL (4.8-10.8) L 06/14/17 14:17 RBC 4.47 Mil/uL (3.80-5.20) 06/14/17 14:17 Hgb 13.3 g/dL (11.0-16.0) 06/14/17 14:17 Hct 39.2 % (34.0-47.0) 06/14/17 14:17 MCV 87.6 fL (81.0-99.0) 06/14/17 14: MCH 29.7 pg (27.0-31.0) 06/14/17 14:17 MCHC 33.9 g/dL (33.0-37.0) 06/14/17 14:17 RDW 14.0 % (11.5-14.5) 06/14/17 14:17 Plt Count 173 K/uL (130-400) 06/14/17 14:17 MPV 9.1 fL (7.2-11.7) 06/14/17 14:17 Neut % (Auto) 46.8 % (50.0-75.0) L 06/14/17 14:17 Lymph % (Auto) 35.8 % (20.0-40.0) 06/14/17 14:17 [place]kin % (Auto) 8.8 % (0.0-10.0) 06/14/17 14:17 Eos % (Auto) 7.8 % (0.0-4.0) H 06/14/17 14:17 Baso % (Auto) 0.8 % (0.0-2.0) 06/14/17 14:17 Neut # 2.0 K/uL (1.8-7.0) 06/14/17 14:17 Lymph # 1.5 K/uL (1.0-4.3) 06/14/17 14:17 [place]kin # 0.4 K/uL (0.0-0.8) 06/14/17 14:17 Eos # 0.3 K/uL (0.0-0.7) 06/14/17 14:17 Baso # 0.0 K/uL (0.0-0.2) 06/14/17 14:17 Sodium 137 mmol/L (132-148) 06/14/17 15:24 Potassium 4.1 mmol/L (3.6-5.2) 06/14/17 15:24 Chloride 101 mmol/L (98-107) 06/14/17 15:24 Carbon Dioxide 23 mmol/L (22-30) 06/14/17 15:24 Anion Gap 18 (10-20) 06/14/17 15:24 BUN 15 mg/dL (7-17) 06/14/17 15:24 Creatinine 0.8 mg/dL (0.7-1.2) 06/14/17 15:24 Est GFR ( Amer) > 60 06/14/17 15:24 Est GFR (Non-Af Amer) > 60 06/14/17 15:24 Random Glucose 104 mg/dL (65-105) 06/14/17 15:24 Calcium 9.4 mg/dl (8.6-10.4) 06/14/17 15:24 Magnesium 2.0 mg/dL (1.6-2.3) 06/14/17 15:24 Total Bilirubin 0.7 mg/dL (0.2-1.3) 06/14/17 15:24 AST 23 U/L (14-36) 06/14/17 15:24 ALT 29 U/L (9-52) 06/14/17 15:24 Alkaline Phosphatase 58 U/L (38-126) 06/14/17 15:24 Troponin I < 0.0120 ng/mL (0.00-0.120) 06/15/17 07:10 NT-Pro-B Natriuret Pep 46.1 pg/mL (0-900) 06/14/17 15:24 Total Protein 8.8 g/dL (6.3-8.3) H 06/14/17 15:24 Albumin 4.6 g/dL (3.5-5.0) 06/14/17 15:24 Globulin 4.2 gm/dL (2.2-3.9) H 06/14/17 15:24 Albumin/Globulin Ratio 1.1 (1.0-2.1) 06/14/17 15:24 TSH 3rd Generation 2.19 mIU/L (0.46-4.68) 06/14/17 14:17 Urine Color Straw (YELLOW) 06/14/17 16:13 Urine Clarity Clear (Clear) 06/14/17 16:13 Urine pH 8.0 (5.0-8.0) 06/14/17 16:13 Ur Specific [place] 1.008 (1.003-1.030) 06/14/17 16:13 Urine Protein Negative mg/dL (NEGATIVE) 06/14/17 16:13 Urine Glucose (UA) Normal mg/dL (Normal) 06/14/17 16:13 Urine Ketones Negative mg/dL (NEGATIVE) 06/14/17 16:13 Urine Blood Negative (NEGATIVE) 06/14/17 16:13 Urine Nitrate Negative (NEGATIVE) 06/14/17 16:13 Urine Bilirubin Negative (NEGATIVE) 06/14/17 16:13 Urine Urobilinogen Normal mg/dL (0.2-1.0) 06/14/17 16:13 Ur Leukocyte Esterase Trace Marisol/uL (Negative) H 06/14/17 16:13 Urine WBC (Auto) 4 /hpf (0-5) 06/14/17 16:13 Urine RBC (Auto) < 1 /hpf (0-3) 06/14/17 16:13 Ur Squamous Epith Cells 3 /hpf (0-5) 06/14/17 16:13 Ur Transition Epith Cell < 1 /hpf (0-3) 06/14/17 16:13 Urine Bacteria Rare (<OCC) 06/14/17 16:13 Discharge Plan - Follow Up Plan Condition: GOOD Disposition: HOME/ ROUTINE Instructions: Chest Pain (DC), Heart Healthy Diet (DC) Additional Instructions: FOLLOW UP WITH DR HAIRSTON IN A WEEK AT HIS OFFICE -----CALL OFFICE FOR APPOINTMENT FOLLOW UP WITH YOUR PRIMARY WAY INSPECTOR DR SEWELL IN A WEEK --CALL OFFICE FOR APPOINTMENT ASK FOR POSSIBLE HOLTER MONITOR OUT PATIENT CONTINUE HOME MEDICATION MED RECS CALL YOUR PMD DR HAIRSTON OR GO THE NEAREST EMERGENCY ROOM IF SYMPTOMS RETURN OR WORSENING Referrals: Durga Flannery MD [Staff Provider] - Nate Hairston DO [Staff Provider] -
== END 2017-06-18 15:40 | disposition home or self-care (01) | DRG 313 ==
LOC: C.ER 13:33 → C.9E 16:48 → C.6T 17:13 → OBSVTOIN 06-15 14:24
PROVIDERS: ADMIT Internal Medicine Critical Care Medicine; ATTEND Internal Medicine Critical Care Medicine
DX: R07.89 Other chest pain (principal); I10 Essential (primary) hypertension; E78.00 Pure hypercholesterolemia, unspecified; J45.909 Unspecified asthma, uncomplicated; M81.0 Age-related osteoporosis without current pathological fracture; Z90.49 Acquired absence of other specified parts of digestive tract; R42 Dizziness and giddiness

== ENCOUNTER 2018-03-18 12:33 | Inpatient (IN) | payer OTHER ==
[2018-03-18] MEDS ORDERED: Sodium Chloride 0.9% 1,000 ML IV ONE (13:09)
--- NOTE | 2018-03-18 13:09 | C.PDOC ---
History Of Present Illness 77 year old patient with SHx of cholecystectomy presents to the ED referred by Dr. Olsen for an evaluation of right lower abdominal pain worsening for the last 2 days. Pain is localized and constant. Associates symptoms include nausea and chills. Last bowel movement was this morning. Time Seen by Provider: 03/18/18 12:58 Chief Complaint (Nursing): Abdominal Pain History Per: Patient History/Exam Limitations: no limitations Onset/Duration Of Symptoms: Days Current Symptoms Are (Timing): Still Present Location Of Pain/Discomfort: RLQ Radiation Of Pain To:: None Associated Symptoms: Chills, Nausea Last Bowel Movement: Today Past Medical History Reviewed: Historical Data, Nursing Documentation, Vital Signs Vital Signs: Last Vital Signs Temp 98.3 F 03/18/18 16:59 Pulse 100 H 03/18/18 16:59 Resp 16 03/18/18 16:59 BP 118/79 03/18/18 16:59 Pulse Ox 99 03/18/18 16:59 - Medical History PMH: Anxiety, Arthritis, Asthma, Depression, Gastritis, Gall Bladder Disease, HTN, Hypercholesterolemia, Osteoporosis Denies: Diabetes, Hepatitis, HIV, Chronic Kidney Disease, Seizures, Sexually Transmitted Disease (candidiasis) Surgical History: Cholecystectomy Family History: States: No Known Family Hx - Social History Hx Tobacco Use: No Hx Alcohol Use: No Hx Substance Use: No - Immunization History Hx Tetanus Toxoid Vaccination: No Hx Influenza Vaccination: No Hx Pneumococcal Vaccination: No Review Of Systems Except As Marked, All Systems Reviewed And Found Negative. Constitutional: Negative for: Chills Gastrointestinal: Positive for: Nausea, Abdominal Pain (right lower quadrant ) Physical Exam - Physical Exam Appears: Other (Moderate distress ) Skin: Warm, Dry Head: Normacephalic Eye(s): bilateral: Normal Inspection Nose: Normal Oral Mucosa: Moist Neck: Supple Chest: Symmetrical Cardiovascular: Rhythm Regular Respiratory: Normal Breath Sounds, No Rales, No Rhonchi, No Wheezing Gastrointestinal/Abdominal: Soft, Tenderness (Right lower quadrant ), Distention (Mild ), No Guarding, No Rebound Extremity: Normal ROM Neurological/Psych: Oriented x3, Normal Speech Gait: Steady ED Course And Treatment - Laboratory Results Result Diagrams: 03/18/18 13:19 03/18/18 13:19 ECG: Interpreted By Me, Viewed By Me ECG Rhythm: Sinus Rhythm, PVC Rate From EC O2 Sat by Pulse Oximetry: 95 (RA) Pulse Ox Interpretation: Normal - Radiology CXR: Interpreted by Me CXR Interpretation: Yes: No Acute Disease ([facility]) Progress - Re-Evaluation Re-evaluation Note: 03/18/18 13:18 D/W DR FLANNERY C/F PMD, AWARE OF ER FINDINGS. REQUESTS DR Angélica FIELDS FOR CONSULT 03/18/18 13:22 D/W SURG RESIDENT WILL EVAL 03/18/18 15:56 CT REPORT REVIEWED. PER SURG, ADMIT TO MEDICINE. 03/18/18 15:58 D/W DR FLANNERY C/F PMD, WILL ADMIT 03/18/18 17:04 PER SURG TEAM, DR Angélica FIELDS NO LONGER AVAIL FOR CONSULT D/W DR GRUBBS, ACCEPTS FOR CONSULT. DR FLANNERY AWARE - Data Reviewed Data Reviewed: Lab, Diagnostic imaging, EKG, Old records - Critical Care Citical Care: Excluding Proc Time Critical Care Time: 90 minutes - Continuity of Care Discussed patient case with:: Patient, Covering for PMD Discussed pt. case with bilingual sales consultant/specialty: General Surgery Disposition Counseled Patient/Family Regarding: Studies Performed, Diagnosis - Disposition Disposition: HOSPITALIZED Disposition Time: 15:58 Condition: SERIOUS - POA Present On Arrival: Poor Glycemic Control - Clinical Impression Clinical Impression: Appendicitis - Scribe Statement The provider has reviewed the documentation as recorded by the Melvinibe Kendal Jose All medical record entries made by the Melvinibe were at my direction and personally dictated by me. I have reviewed the chart and agree that the record accurately reflects my personal performance of the history, physical exam, medical decision making, and the department course for this patient. I have also personally directed, reviewed, and agree with the discharge instructions and disposition. Decision To Admit - Pt Status Changed To: Hospital Disposition Of: Inpatient - Admit Certification Admit to Inpatient:: After my assessment, the patient will require hospitalization for at least two midnights. This is because of the severity of symptoms shown, intensity of services needed, and/or the medical risk in this patient being treated as an outpatient. - InPatient: Physician Admission Certification:: SEE NOTE - . Bed Request Type: Regular Admitting Physician: Durga Flannery Patient Diagnosis: Appendicitis
[2018-03-18] MEDS ORDERED: Sodium Chloride 0.9% 1,000 ML ONE (13:12)
[2018-03-18] MEDS ORDERED: Morphine 4 MG/ML VIAL ONE (13:12)
[2018-03-18 13:25] LABS: BASO % 0.4 % (0.0-2.0); EOS % 0.5 % (0.0-4.0); HEMOGLOBIN 12.4 g/dL (11.0-16.0); LYMPH # 1.1 K/uL (1.0-4.3); LYMPH % 13.2 % (20.0-40.0); MEAN CELL VOLUME 86.9 fL (81.0-99.0); MEAN CORPUSCULAR HEMOGLOBIN 29.8 pg (27.0-31.0); MEAN CORPUSCULAR HGB CONC 34.2 g/dL (33.0-37.0); MEAN PLATELET VOLUME 9.4 fL (7.2-11.7); MONO % 11.6 % (0.0-10.0); NEUT # 6.4 K/uL (1.8-7.0); NEUT % 74.3 % (50.0-75.0); RBC 4.18 Mil/uL (3.80-5.20)
[2018-03-18 13:32] LABS: WHITE BLOOD COUNT 8.6 K/uL (4.8-10.8)
[2018-03-18 13:42] LABS: ALB/GLOB RATIO 1.3 (1.0-2.1); ALBUMIN 4.3 g/dL (3.5-5.0); ALT/SGPT 18 U/L (9-52); AST/SGOT 21 U/L (14-36); BLOOD UREA NITROGEN 14 mg/dL (7-17); CALCIUM 9.3 mg/dl (8.6-10.4); GFR AFRICAN-AMERICAN > 60; GFR NON-AFRICAN AMERICAN > 60; LIPASE 68 U/L (23-300)
[2018-03-18 13:51] LABS: VENOUS BLOOD GAS BASE EXCESS 4.4 mmol/L (0.0-2.0); VENOUS BLOOD GAS PCO2 32 mmHg (40-60); VENOUS BLOOD GAS PO2 24 mm/Hg (30-55); VENOUS BLOOD PH 7.53 (7.32-7.43)
--- NOTE | 2018-03-18 14:00 | RAD ---
Date of service: 03/18/2018 PROCEDURE: CHEST RADIOGRAPH, 1 VIEW HISTORY: Abdominal pain. COMPARISON: 06/14/2017 FINDINGS: LUNGS: Clear. PLEURA: No pneumothorax or pleural fluid seen. CARDIOVASCULAR: No radiographic findings to suggest acute or significant cardiovascular disease. OSSEOUS STRUCTURES: No significant abnormalities. VISUALIZED UPPER ABDOMEN: Normal. OTHER FINDINGS: None. IMPRESSION: No active disease. No acute/significant interval changes. Concordant results with the preliminary interpretation rendered by the emergency department physician procedure.
[2018-03-18 14:04] LABS: INR 1.1; PROTHROMBIN TIME 12.5 SECONDS (9.7-12.2)
[2018-03-18] MEDS ORDERED: Iohexol 350mg/ml 100 ML ONE (14:42)
--- NOTE | 2018-03-18 15:34 | CT ---
Date of service: 03/18/2018 PROCEDURE: CT Abdomen and Pelvis with contrast HISTORY: abd pain COMPARISON: Comparison is made with 05/04/2012 TECHNIQUE: Contrast dose: 100 mL Omnipaque 350. Axial and reformatted coronal and sagittal CT images of the abdomen and pelvis were obtained after IV contrast administration. Radiation dose: Total exam DLP = 322.34 mGy-cm. This CT exam was performed using one or more of the following dose reduction techniques: Automated exposure control, adjustment of the mA and/or kV according to patient size, and/or use of iterative reconstruction technique. FINDINGS: LOWER THORAX: No evidence of acute pathology. LIVER: No significant interval change in the liver is noted since the previous exam. Against seen is low-attenuation lesion at the right liver lobe measures 1.6 centimeter. Again seen is fion-bi-brbanjxr intrahepatic and extrahepatic biliary ductal dilatation. GALLBLADDER AND BILE DUCTS: The gallbladder was removed. Gooomo-if-pnnwijdznh dilated common bile duct noted appears slightly larger compared to the previous exam. PANCREAS: Unremarkable. No gross lesion or ductal dilatation. SPLEEN: Unremarkable. ADRENALS: Unremarkable. No mass. KIDNEYS AND URETERS: There are bilateral parapelvic cyst seen. The kidneys enhance symmetrically. VASCULATURE: Unremarkable. No aortic aneurysm. BOWEL: Colonic diverticulosis are noted without evidence of diverticulitis. . No obstruction. No gross mural thickening. APPENDIX: The appendix is markedly enlarged surrounding with inflammatory changes and likely contain appendicoliths. Findings consistent with acute appendicitis. PERITONEUM: Unremarkable. No free fluid. No free air. LYMPH NODES: Unremarkable. No enlarged lymph nodes. BLADDER: Unremarkable. REPRODUCTIVE: The uterus is heterogeneous mildly enlarged for the patient's age. BONES: No acute fracture. OTHER FINDINGS: None. IMPRESSION: Findings consistent with acute appendicitis. Appendicolith seen at the proximal portion of the appendix. No evidence of abscess formation or free air. Dilated common bile duct likely due to prior cholecystectomy. If clinically warranted further assessment by MRCP may be obtained. Bilateral parapelvic renal cysts. Heterogeneous mildly enlarged uterus. No other acute pathology noted in the abdomen and pelvis.
[2018-03-18 15:46] LABS: SQUAMOUS EPITHIAL 4 /hpf (0-5); URINE BILIRUBIN NEGATIVE (NEGATIVE); URINE BLOOD NEGATIVE (NEGATIVE); URINE CLARITY Clear (Clear); URINE COLOR Yellow (YELLOW); URINE GLUCOSE (UA) NORMAL (Normal); URINE LEUKOCYTE ESTERASE 1+ Leu/uL (Negative); URINE PROTEIN NEGATIVE (NEGATIVE); URINE UROBILINOGEN NORMAL mg/dL (0.2-1.0)
[2018-03-18] MEDS ORDERED: Piperacillin/Tazobact 3.375 gm 100 ML IV STA (15:56)
[2018-03-18] MEDS ORDERED: Piperacillin/Tazobact 3.375 gm 100 ML IVPB ONE (16:03)
--- NOTE | 2018-03-18 16:24 | CP.PCM.CON ---
History of Present Illness - History of Present Illness History of Present Illness: GENERAL SURGERY CONSULT NOTE FOR DR. GRUBBS 77yo F with PMHx of HTN, gastritis, hyperlipidemia, osteoporosis presents to the ED with abdominal pain. The pain began 2 days ago and is located in the RLQ and suprapubic area. Her pain worsened and Dr. Mendez told her to come to the ED. She had some associated nausea but no vomiting. States she has a decreased appetite. Last drank coffee at 5AM. She had 2 soft BMs this morning, non bloody. She is passing flatus. Last colonoscopy 4 years ago. ECHO & stress test in June were normal. Pt denies CP or SOB. Has positive chills. PMD: Nate Stearsn PMHx: HTN, gastritis, hyperlipidemia, osteoporosis Surgeries: cholecystectomy, tubal ligation Meds: aspirin 81, lansoprazole, alprazolam, donepezil, linzess, metoprolol, ambien, lisinopril/HCTZ Allergies: none Social history: denies any tobacco abuse, etoh or drug use Review of Systems - Review of Systems All systems: reviewed and no additional remarkable complaints except (as per HPI ) Past Patient History - Infectious Disease Hx of Infectious Diseases: None - Past Medical History & Family History Past Medical History?: Yes - Past Social History Smoking Status: Never Smoked - CARDIAC Hx Hypercholesterolemia: Yes Hx Hypertension: Yes - PULMONARY Hx Asthma: Yes - NEUROLOGICAL Hx Seizures: No - HEENT Hx HEENT Problems: Yes Hx Cataracts: Yes (surgery) - RENAL Hx Chronic Kidney Disease: No - ENDOCRINE/METABOLIC Hx Endocrine Disorders: No - HEMATOLOGICAL/ONCOLOGICAL Hx Human Immunodeficiency Virus (HIV): No - INTEGUMENTARY Hx Dermatological Problems: No - MUSCULOSKELETAL/RHEUMATOLOGICAL Hx Arthritis: Yes Hx Osteoporosis: Yes - GASTROINTESTINAL Hx Gall Bladder Disease: Yes Hx Gastritis: Yes - GENITOURINARY/GYNECOLOGICAL Hx Sexually Transmitted Disorders: No (candidiasis) - PSYCHIATRIC Hx Anxiety: Yes Hx Depression: Yes Hx Substance Use: No - SURGICAL HISTORY Hx Cholecystectomy: Yes - ANESTHESIA Hx Anesthesia: Yes Hx Anesthesia Reactions: No Meds Allergies/Adverse Reactions: Allergies Allergy/AdvReac Type Severity Reaction Status Date / Time No Known Allergies Allergy Verified 05/03/17 11:25 - Medications Medications: Current Medications Sodium Chloride (Sodium Chloride 0.9%) 1,000 mls @ 250 mls/hr IV .Q4H ONE Stop: 03/18/18 17:08 Last Admin: 03/18/18 13:14 Dose: 250 mls/hr Piperacillin Sod/Tazobactam Sod (Zosyn 3.375 In Ns 100ml) 100 mls @ 200 mls/hr IV STAT STA PRN Reason: Protocol Stop: 03/18/18 16:25 Last Admin: 03/18/18 16:03 Dose: 200 mls/hr Physical Exam - Constitutional Appears: Well, Non-toxic, No Acute Distress - Head Exam Head Exam: ATRAUMATIC, NORMAL INSPECTION - Eye Exam Eye Exam: EOMI, Normal appearance - Respiratory Exam Respiratory Exam: NORMAL BREATHING PATTERN. absent: Respiratory Distress - Cardiovascular Exam Cardiovascular Exam: +S1, +S2 - GI/Abdominal Exam GI & Abdominal Exam: Guarding, Soft, Tenderness (tender in RLQ). absent: Distended, Firm, Hernia, Rebound, Rigid Additional comments: + McBurney point tenderness - Neurological Exam Neurological exam: Alert, CN II-XII Intact, Oriented x3 - Psychiatric Exam Psychiatric exam: Normal Affect, Normal Mood - Skin Skin Exam: Dry, Warm Results - Vital Signs Recent Vital Signs: Last Vital Signs Temp 99.4 F 03/18/18 14:42 Pulse 92 H 03/18/18 14:42 Resp 20 03/18/18 14:42 BP 115/65 03/18/18 14:42 Pulse Ox 95 03/18/18 15:59 - Labs Result Diagrams: 03/18/18 13:19 03/18/18 13:19 Labs: Laboratory Results - last 24 hr 03/18/18 03/18/18 03/18/18 13:19 13:19 13:37 WBC 8.6 D RBC 4.18 Hgb 12.4 Hct 36.4 MCV 86.9 MCH 29.8 MCHC 34.2 RDW 14.0 Plt Count 149 MPV 9.4 Neut % (Auto) 74.3 Lymph % (Auto) 13.2 L Whitman % (Auto) 11.6 H Eos % (Auto) 0.5 Baso % (Auto) 0.4 Neut # (Auto) 6.4 Lymph # (Auto) 1.1 Whitman # (Auto) 1.0 H Eos # (Auto) 0.0 Baso # (Auto) 0.0 PT INR APTT pO2 VBG pH VBG pCO2 VBG HCO3 VBG Total CO2 VBG O2 Sat (Calc) VBG Base Excess VBG Potassium Glucose Lactate Sodium 140 Potassium 4.0 Chloride 101 Carbon Dioxide 27 Anion Gap 16 BUN 14 Creatinine 0.8 Est GFR ( Amer) > 60 Est GFR (Non-Af Amer) > 60 Random Glucose 110 H Calcium 9.3 Total Bilirubin 0.8 AST 21 ALT 18 Alkaline Phosphatase 65 Total Protein 7.5 Albumin 4.3 Globulin 3.3 Albumin/Globulin Ratio 1.3 Lipase 68 Venous Blood Potassium Urine Color Urine Clarity Urine pH Ur Specific Trion Urine Protein Urine Glucose (UA) Urine Ketones Urine Blood Urine Nitrate Urine Bilirubin Urine Urobilinogen Ur Leukocyte Esterase Urine WBC (Auto) Urine RBC (Auto) Ur Squamous Epith Cells Blood Type A NEGATIVE Antibody Screen Negative 03/18/18 03/18/18 03/18/18 13:43 13:48 15:34 WBC RBC Hgb Hct MCV MCH MCHC RDW Plt Count MPV Neut % (Auto) Lymph % (Auto) Whitman % (Auto) Eos % (Auto) Baso % (Auto) Neut # (Auto) Lymph # (Auto) Whitman # (Auto) Eos # (Auto) Baso # (Auto) PT 12.5 H INR 1.1 APTT 31 pO2 24 L VBG pH 7.53 H VBG pCO2 32 L VBG HCO3 27.2 VBG Total CO2 27.7 VBG O2 Sat (Calc) 51.7 VBG Base Excess 4.4 H VBG Potassium 3.4 L Glucose 99 Lactate 1.1 Sodium 139.0 Potassium Chloride 106.0 Carbon Dioxide Anion Gap BUN Creatinine Est GFR ( Amer) Est GFR (Non-Af Amer) Random Glucose Calcium Total Bilirubin AST ALT Alkaline Phosphatase Total Protein Albumin Globulin Albumin/Globulin Ratio Lipase Venous Blood Potassium 3.4 L Urine Color Yellow Urine Clarity Clear Urine pH 7.0 Ur Specific Trion 1.028 Urine Protein Negative Urine Glucose (UA) Normal Urine Ketones Trace Urine Blood Negative Urine Nitrate Negative Urine Bilirubin Negative Urine Urobilinogen Normal Ur Leukocyte Esterase 1+ H Urine WBC (Auto) 4 Urine RBC (Auto) 1 Ur Squamous Epith Cells 4 Blood Type Antibody Screen Assessment & Plan - Assessment and Plan (Free Text) Assessment: 77yo F with PMHx of HTN, gastritis, hyperlipidemia, osteoporosis presents with abdominal pain and found to have acute appendicitis. - Afebrile, VSS - No leukocytosis - CT showed markedly enlarged appendix w/ surrounding inflammatory changes and appendicolith - Plan for OR today for laparoscopic appendectomy, possible open - NPO and IV fluids - IV Zosyn - Continue home meds per primary - Discussed plan with Dr. Rolf Jennings PGY-4
[2018-03-18] MEDS ORDERED: Sodium Chloride 0.9% 1,000 ML IV SCH (17:15)
[2018-03-18] MEDS ORDERED: Succinylcholine Chloride 20 mg/ml Syr (5 ml) IV ONE (20:14)
[2018-03-18] MEDS ORDERED: Propofol 10 mg/ml Inj (20 ML) ONE (20:15)
[2018-03-18] MEDS ORDERED: Rocuronium 10 mg/ml (5 ml) ONE (20:15)
[2018-03-18] MEDS ORDERED: DiphenhydrAMINE 50 mg/ml Inj ONE (20:23)
[2018-03-18] MEDS ORDERED: ePHEDrine 50 mg/ml Inj ONE (20:43)
[2018-03-18] MEDS ORDERED: Neostigmine Methylsulfate 3mg/3ml Syringe IV ONE (21:11)
--- NOTE | 2018-03-18 21:46 | PCM.SURG1 ---
Surgeon's Initial Post Op Note - Surgeon's Notes Surgeon: Dr. Bansal Strategic Planning Director: Dr. Jennings PGY-4, [facility] OMS-IV Type of Anesthesia: General Endo Anesthesia Administered By: Dr. Dash Pre-Operative Diagnosis: Acute appendicitis Operative Findings: Dilated appendix with surrounding inflammatory changes Post-Operative Diagnosis: Acute appendicitis Operation Performed: Laparoscopic appendectomy Specimen/Specimens Removed: appendix Estimated Blood Loss: EBL {In ML}: 10 Blood Products Given: N/A Drains Used: No Drains Post-Op Condition: Fair Date of Surgery/Procedure: 03/18/18 Time of Surgery/Procedure: 21:46
[2018-03-18] MEDS: HYDROmorphone 0.5 mg/0.5 ml ISec IVP PRN ×2 (22:08→22:23)
[2018-03-18] MEDS: metroNIDAZOLE IV 500 mg/100 ml 500 MG/100 ML BAG IVPB SCH (22:12)
[2018-03-18] MEDS ORDERED: Lactated Ringer's 1,000 ML IV ONE (22:45)
[2018-03-19] MEDS: Morphine 4 MG/ML VIAL IVP PRN ×3 (01:02→12:27)
[2018-03-19] MEDS: Lactated Ringer's 1,000 ML IV SCH ×3 (01:05→10:15)
[2018-03-19 01:15] VITALS: RESP 20
[2018-03-19] MEDS: Piperacill/Tazo 3.375gm in Dex 3.375 GM/50 ML BAG IVPB SCH ×4 (03:09→21:25)
[2018-03-19] MEDS: metroNIDAZOLE IV 500 mg/100 ml 500 MG/100 ML BAG IVPB SCH ×3 (05:09→21:26)
[2018-03-19 06:51] LABS: BASO % 0.1 % (0.0-2.0); HEMOGLOBIN 12.6 g/dL (11.0-16.0); LYMPH # 0.3 K/uL (1.0-4.3); LYMPH % 5.2 % (20.0-40.0); MEAN CELL VOLUME 88.3 fL (81.0-99.0); MEAN CORPUSCULAR HEMOGLOBIN 30.2 pg (27.0-31.0); MEAN CORPUSCULAR HGB CONC 34.2 g/dL (33.0-37.0); MEAN PLATELET VOLUME 9.2 fL (7.2-11.7); MONO # 0.4 K/uL (0.0-0.8); MONO % 5.5 % (0.0-10.0); NEUT # 5.8 K/uL (1.8-7.0); NEUT % 89.2 % (50.0-75.0); PLATELET COUNT 143 K/uL (130-400); RBC 4.16 Mil/uL (3.80-5.20); RED CELL DISTRIBUTION WIDTH 13.9 % (11.5-14.5); WHITE BLOOD COUNT 6.4 K/uL (4.8-10.8)
[2018-03-19 07:13] LABS: BLOOD UREA NITROGEN 14 mg/dL (7-17); CALCIUM 8.4 mg/dl (8.6-10.4); GFR AFRICAN-AMERICAN > 60; GFR NON-AFRICAN AMERICAN > 60
[2018-03-19 08:47] LABS: BANDS 50 % (0-2); LYMPHOCYTE 5 % (20-40); MONOCYTE 8 % (0-10); NEUTROPHIL 37 % (50-75); PLATELET ESTIMATE NORMAL (NORMAL); TOTAL CELLS COUNTED 100
--- NOTE | 2018-03-19 12:33 | CARD ---
APPROVED REPORT Date of service: 03/18/2018 EKG Measurement Heart [id number] <Conclusion> Sinus rhythm with occasional premature ventricular complexes Nonspecific ST abnormality Abnormal ECG
--- NOTE | 2018-03-19 16:34 | CP.PCM.PN ---
Subjective - Date & Time of Evaluation Date of Evaluation: 03/19/18 Time of Evaluation: 12:30 - Subjective Subjective: General Surgery Note for Dr. Bansal Patient was seen and examined OOB in chair at bedside today in no acute distress. Nurse reports no overnight events. Patient complains of improving abdominal pain and new onset suprapubic pain relieved on urination. Denies CP, SOB, n/v, f/c, c/d. Decreased appetite from baseline, tolerating what food she does eat well. Pain controlled. Objective - Vital Signs/Intake and Output Vital Signs (last 24 hours): Temp Pulse Resp BP Pulse Ox 98.2 F 90 20 102/61 96 03/19/18 07:15 03/19/18 07:15 03/19/18 07:15 03/19/18 07:15 03/19/18 07:15 Intake and Output: 03/19/18 03/19/18 06:59 18:59 Intake Total 3260 1430 Balance 3260 1430 - Medications Medications: Current Medications Acetaminophen (Tylenol 325mg Tab) 650 mg PO Q6 PRN PRN Reason: Fever >100.4 F Piperacillin Sod/Tazobactam Sod (Zosyn 3.375 Gm Iv Premix) 3.375 gm in 50 mls @ 100 mls/hr IVPB Q6H [facility] PRN Reason: Protocol Last Admin: 03/19/18 10:01 Dose: 100 mls/hr Metronidazole (Flagyl) 500 mg in 100 mls @ 100 mls/hr IVPB Q8H [facility] PRN Reason: Protocol Last Admin: 03/19/18 13:30 Dose: 100 mls/hr Lactated Ringer's (Lactated Ringer's) 1,000 mls @ 125 mls/hr IV .Q8H [facility] Last Admin: 03/19/18 10:15 Dose: 125 mls/hr Morphine Sulfate (Morphine) 4 mg IVP Q4 PRN PRN Reason: Pain, moderate (4-7) Last Admin: 03/19/18 12:27 Dose: 4 mg Ondansetron HCl (Zofran Inj) 4 mg IVP Q4 PRN PRN Reason: Nausea/Vomiting - Labs Labs: 03/19/18 06:37 03/19/18 06:37 PT 12.5 SECONDS (9.7-12.2) H 03/18/18 13:43 INR 1.1 03/18/18 13:43 APTT 31 SECONDS (21-34) 03/18/18 13:43 - Constitutional Appears: Non-toxic, No Acute Distress - Head Exam Head Exam: ATRAUMATIC, NORMOCEPHALIC - Eye Exam Eye Exam: EOMI, Normal appearance - ENT Exam ENT Exam: Mucous Membranes Moist, Normal Exam - Respiratory Exam Respiratory Exam: NORMAL BREATHING PATTERN. absent: Rales, Respiratory Distress , Stridor - Cardiovascular Exam Cardiovascular Exam: +S1, +S2 - GI/Abdominal Exam GI & Abdominal Exam: Soft, Tenderness. absent: Firm, Guarding, Rigid, Hernia, Rebound Additional comments: tender to palpation over surgical site and suprapubic - Neurological Exam Neurological Exam: Alert, Awake, Oriented x3 - Psychiatric Exam Psychiatric exam: Normal Affect, Normal Mood - Skin Skin Exam: Dry, Intact, Normal Color, Warm Additional comments: surgical port sites c/d/i, healing well Assessment and Plan - Assessment and Plan (Free Text) Assessment: 77yoF with appendicitis s/p lap appy POD#1 Plan: - bladder scan prn - f/u urine Cx - encouraged to use incentive spirometer - encouraged to ambulate, sit OOB in chair - continue abx and IVF - will d/c abx on d/c - tolerating diet when eating - further recs per Dr. Rolf Murphy PGY1
--- NOTE | 2018-03-19 19:54 | CP.PCM.HP ---
Past Patient History - Infectious Disease Hx of Infectious Diseases: None - Past Medical History & Family History Past Medical History?: Yes - Past Social History Smoking Status: Former Smoker - CARDIAC Hx Hypercholesterolemia: Yes Hx Hypertension: Yes - PULMONARY Hx Asthma: Yes - NEUROLOGICAL Hx Seizures: No - HEENT Hx HEENT Problems: Yes Hx Cataracts: Yes (surgery) - RENAL Hx Chronic Kidney Disease: No - ENDOCRINE/METABOLIC Hx Endocrine Disorders: No - HEMATOLOGICAL/ONCOLOGICAL Hx Human Immunodeficiency Virus (HIV): No - INTEGUMENTARY Hx Dermatological Problems: No - MUSCULOSKELETAL/RHEUMATOLOGICAL Hx Arthritis: Yes - GASTROINTESTINAL Hx Gall Bladder Disease: Yes Hx Gastritis: Yes - GENITOURINARY/GYNECOLOGICAL Hx Sexually Transmitted Disorders: No (candidiasis) - PSYCHIATRIC Hx Anxiety: Yes Hx Depression: Yes Hx Substance Use: No - SURGICAL HISTORY Hx Cholecystectomy: Yes - ANESTHESIA Hx Anesthesia: Yes Hx Anesthesia Reactions: No Meds Allergies/Adverse Reactions: Allergies Allergy/AdvReac Type Severity Reaction Status Date / Time No Known Allergies Allergy Verified 05/03/17 11:25 Results - Vital Signs Recent Vital Signs: Last Vital Signs Temp 99.5 F 03/19/18 16:00 Pulse 90 03/19/18 16:00 Resp 20 03/19/18 16:00 BP 105/63 03/19/18 16:00 Pulse Ox 96 03/19/18 16:00 - Labs Result Diagrams: 03/19/18 06:37 03/19/18 06:37 Labs: Laboratory Results - last 24 hr 03/19/18 03/19/18 06:37 06:37 WBC 6.4 RBC 4.16 Hgb 12.6 Hct 36.7 MCV 88.3 MCH 30.2 MCHC 34.2 RDW 13.9 Plt Count 143 MPV 9.2 Neut % (Auto) 89.2 H Lymph % (Auto) 5.2 L Summers % (Auto) 5.5 Eos % (Auto) 0.0 Baso % (Auto) 0.1 Neut # (Auto) 5.8 Lymph # (Auto) 0.3 L Summers # (Auto) 0.4 Eos # (Auto) 0.0 Baso # (Auto) 0.0 Neutrophils % (Manual) 37 L Band Neutrophils % 50 H* Lymphocytes % (Manual) 5 L Monocytes % (Manual) 8 Platelet Estimate Normal Sodium 138 Potassium 3.7 Chloride 104 Carbon Dioxide 22 Anion Gap 15 BUN 14 Creatinine 0.9 Est GFR ( Amer) > 60 Est GFR (Non-Af Amer) > 60 Random Glucose 164 H Calcium 8.4 L
[2018-03-19] MEDS: Oxycodone/Acetaminophen 5/325 mg Tab PO PRN (22:51)
[2018-03-20] MEDS ORDERED: Simethicone 80 mg Chewtab PO STA (00:30)
--- NOTE | 2018-03-20 00:32 | OP ---
Copied To: Paula Bansal MD Attending MD: Paula Bansal MD PROCEDURE DATE: 03/18/2018 SURGEON: Paula Bansal MD PMO CONSULTANT: Itzel Jennings DO ANESTHESIA: General. ANESTHESIOLOGIST: Dr. Dash. PREOPERATIVE DIAGNOSIS: Acute appendicitis. POSTOPERATIVE DIAGNOSIS: Acute appendicitis. PROCEDURE: Laparoscopic appendectomy. DESCRIPTION OF OPERATION: With the patient in the supine position under adequate general anesthesia, the abdomen was prepped and draped in the usual sterile manner. Veress needle puncture was performed at the umbilicus with insufflation to 15 cm water pressure of CO2, and a 10-mm laparoscopic trocar was inserted via an infraumbilical incision. There were jogz-be-rcesavub adhesions of the omentum noted between the pelvis and the left lower quadrant. Under direct vision, a 12-mm trocar was inserted in the suprapubic midline, and a 5-mm trocar inserted into the left lower quadrant with the physician chosen to avoid the adhesions. The appendix was visualized. It was markedly dilated with the bluish tinge, and inflammatory changes were noted surrounding the base and the tip involving the adjacent epiploic type fat. The appendix was gently freed, and the mesoappendix was identified. As the appendix was manipulated, there was a small amount of leakage of thin brownish fluid with pedicle from a small perforation close to the base of the appendix. The cecum was elevated and the appendix was divided close to the cecum in an area which appeared well preserved. The mesoappendix was then divided with a second pass of the Endo NNEKA stapler. The appendix was placed in a specimen retrieval bag and removed via the 12-mm port site. It was noted to contain multiple fecaliths. The right gutter and pelvis were suctioned and then gently irrigated, and the area around the terminal ileum was explored to illuminate any possible interloop fluid collections. The pneumoperitoneum was released, and the trocars were removed. The umbilical and 12-mm port sites were closed with [id number] fascial sutures of 0 Vicryl. All incisions were closed with 4-0 Monocryl, subcuticular sutures, and steri-strips. Dry sterile dressings were applied. The patient tolerated the procedure well and transferred to the recovery room in stable condition. Estimated blood loss for the procedure was 10 mL. Paula Bansal MD [facility] # [id number]
[2018-03-20] MEDS: Piperacill/Tazo 3.375gm in Dex 3.375 GM/50 ML BAG IVPB SCH ×5 (04:57→22:25)
[2018-03-20] MEDS: metroNIDAZOLE IV 500 mg/100 ml 500 MG/100 ML BAG IVPB SCH ×3 (05:46→21:35)
[2018-03-20 08:34] LABS: BASO % 0.1 % (0.0-2.0); LYMPH # 0.4 K/uL (1.0-4.3); LYMPH % 4.7 % (20.0-40.0); MEAN CELL VOLUME 87.6 fL (81.0-99.0); MEAN CORPUSCULAR HGB CONC 34.3 g/dL (33.0-37.0); MONO # 0.6 K/uL (0.0-0.8); MONO % 7.7 % (0.0-10.0); NEUT # 6.9 K/uL (1.8-7.0); NEUT % 87.5 % (50.0-75.0); PLATELET COUNT 139 K/uL (130-400); RBC 3.66 Mil/uL (3.80-5.20); WHITE BLOOD COUNT 7.9 K/uL (4.8-10.8)
[2018-03-20 09:10] LABS: BLOOD UREA NITROGEN 17 mg/dL (7-17); CALCIUM 8.4 mg/dl (8.6-10.4); GFR AFRICAN-AMERICAN > 60; GFR NON-AFRICAN AMERICAN > 60
[2018-03-20 09:29] LABS: ANISOCYTOSIS SLIGHT; BANDS 8 % (0-2); HYPOCHROMIC SLIGHT; LYMPHOCYTE 8 % (20-40); MONOCYTE 7 % (0-10); NEUTROPHIL 77 % (50-75); OVALOCYTES SLIGHT; PLATELET ESTIMATE NORMAL (NORMAL); POIKILOCYTOSIS SLIGHT; TOTAL CELLS COUNTED 100
[2018-03-20] MEDS ORDERED: Potassium Chloride 20 mEq ER Tab PO ONE (10:31)
--- NOTE | 2018-03-20 10:39 | CP.PCM.PN ---
Subjective - Date & Time of Evaluation Date of Evaluation: 03/20/18 Time of Evaluation: 07:00 - Subjective Subjective: GENERAL SURGERY PROGRESS NOTE FOR DR. GRUBBS Patient seen and examined at bedside. She is currently OOB to chair. She reports abdominal pain that is improved from yesterday. She is passing flatus but no BM yet. Pt states that she is not eating much because she does not have much of an appetite. After AM rounds, pt started vomiting and was made NPO. Objective - Vital Signs/Intake and Output Vital Signs (last 24 hours): Temp Pulse Resp BP Pulse Ox 98.2 F 84 20 99/64 L 95 03/20/18 08:08 03/20/18 08:08 03/20/18 08:08 03/20/18 08:08 03/20/18 08:08 Intake and Output: 03/20/18 03/20/18 06:59 18:59 Intake Total 740 Balance 740 - Medications Medications: Current Medications Acetaminophen (Tylenol 325mg Tab) 650 mg PO Q6 PRN PRN Reason: Fever >100.4 F Piperacillin Sod/Tazobactam Sod (Zosyn 3.375 Gm Iv Premix) 3.375 gm in 50 mls @ 100 mls/hr IVPB Q6H [facility] PRN Reason: Protocol Last Admin: 03/20/18 04:57 Dose: 100 mls/hr Metronidazole (Flagyl) 500 mg in 100 mls @ 100 mls/hr IVPB Q8H [facility] PRN Reason: Protocol Last Admin: 03/20/18 05:46 Dose: 100 mls/hr Ondansetron HCl (Zofran Inj) 4 mg IVP Q4 PRN PRN Reason: Nausea/Vomiting Oxycodone/Acetaminophen (Percocet 5/325 Mg Tab) 1 tab PO Q4H PRN PRN Reason: Pain, moderate (4-7) Stop: 03/22/18 20:39 Last Admin: 03/19/18 22:51 Dose: 1 tab - Labs Labs: 03/20/18 08:27 03/20/18 08:27 PT 12.5 SECONDS (9.7-12.2) H 03/18/18 13:43 INR 1.1 03/18/18 13:43 APTT 31 SECONDS (21-34) 08/14/18 13:43 - Constitutional Appears: Non-toxic, No Acute Distress - Head Exam Head Exam: ATRAUMATIC, NORMAL INSPECTION - Eye Exam Eye Exam: EOMI, Normal appearance - Respiratory Exam Respiratory Exam: NORMAL BREATHING PATTERN. absent: Respiratory Distress - Cardiovascular Exam Cardiovascular Exam: +S1, +S2 - GI/Abdominal Exam GI & Abdominal Exam: Soft, Tenderness (mild tenderness around laparoscopic incision sites). absent: Distended, Firm, Guarding, Rigid, Rebound Additional comments: Steri strips in place over laparoscoic incision sites - Neurological Exam Neurological Exam: Alert, Awake, Oriented x3 - Psychiatric Exam Psychiatric exam: Normal Affect, Normal Mood - Skin Skin Exam: Dry, Normal Color, Warm Assessment and Plan - Assessment and Plan (Free Text) Assessment: 77yo F with appendicitis s/p laparoscopic appendectomy POD#2 - Hypokalemia of K 3.5, replaced - PT recommends [facility] - Will discuss with case management - Made NPO again due to vomiting - Discussed plan with Dr. Rolf Jennings PGY-4
[2018-03-20] MEDS: Oxycodone/Acetaminophen 5/325 mg Tab PO PRN (11:45)
[2018-03-20] MEDS: Potassium Ch 20mEq in D5-1/2NS 1,000 ML IV SCH ×2 (14:00→21:39)
--- NOTE | 2018-03-20 14:50 | RAD ---
Date of service: 03/20/2018 HISTORY: Abdominal pain, vomiting COMPARISON: No prior. FINDINGS: BOWEL: No evidence of obstruction or free air. Mildly dilated loops of small bowel likely ileus. BONES: Normal. OTHER FINDINGS: None. IMPRESSION: Iliacus without evidence of obstruction or free air.
--- NOTE | 2018-03-20 17:40 | CP.PCM.PN ---
Subjective - Date & Time of Evaluation Date of Evaluation: 03/20/18 Time of Evaluation: 17:40 Objective - Vital Signs/Intake and Output Vital Signs (last 24 hours): Temp Pulse Resp BP Pulse Ox 98.3 F 83 20 129/77 97 03/20/18 16:00 03/20/18 16:00 03/20/18 16:00 03/20/18 16:00 03/20/18 16:00 Intake and Output: 03/20/18 03/20/18 06:59 18:59 Intake Total 740 650 Balance 740 650 - Medications Medications: Current Medications Acetaminophen (Tylenol 325mg Tab) 650 mg PO Q6 PRN PRN Reason: Fever >100.4 F Piperacillin Sod/Tazobactam Sod (Zosyn 3.375 Gm Iv Premix) 3.375 gm in 50 mls @ 100 mls/hr IVPB Q6H [facility] PRN Reason: Protocol Last Admin: 03/20/18 16:21 Dose: 100 mls/hr Metronidazole (Flagyl) 500 mg in 100 mls @ 100 mls/hr IVPB Q8H [facility] PRN Reason: Protocol Last Admin: 03/20/18 14:38 Dose: 100 mls/hr Potassium Chloride/Dextrose/Sod Cl (Potassium Chl 20 Meq In D5-1/2ns) 1,000 mls @ 125 mls/hr IV .Q8H [facility] Last Admin: 03/20/18 14:00 Dose: 125 mls/hr Morphine Sulfate (Morphine) 2 mg IVP Q4 PRN PRN Reason: Pain, severe (8-10) Ondansetron HCl (Zofran Inj) 4 mg IVP Q4 PRN PRN Reason: Nausea/Vomiting Last Admin: 03/20/18 11:28 Dose: 4 mg Oxycodone/Acetaminophen (Percocet 5/325 Mg Tab) 1 tab PO Q4H PRN PRN Reason: Pain, moderate (4-7) Stop: 03/22/18 20:39 Last Admin: 03/20/18 11:45 Dose: 1 tab Pantoprazole Sodium (Protonix Inj) 40 mg IVP DAILY [facility] Last Admin: 03/20/18 13:16 Dose: 40 mg - Labs Labs: 03/20/18 08:27 03/20/18 08:27 PT 12.5 SECONDS (9.7-12.2) H 03/18/18 13:43 INR 1.1 03/18/18 13:43 APTT 31 SECONDS (21-34) 03/18/18 13:43
[2018-03-21] MEDS: Piperacill/Tazo 3.375gm in Dex 3.375 GM/50 ML BAG IVPB SCH ×4 (05:15→22:52)
[2018-03-21] MEDS: Potassium Ch 20mEq in D5-1/2NS 1,000 ML IV SCH ×3 (05:17→21:44)
[2018-03-21] MEDS: metroNIDAZOLE IV 500 mg/100 ml 500 MG/100 ML BAG IVPB SCH ×3 (06:40→21:47)
[2018-03-21 07:14] LABS: BASO % 0.1 % (0.0-2.0); EOS % 0.2 % (0.0-4.0); HEMOGLOBIN 12.7 g/dL (11.0-16.0); LYMPH # 0.6 K/uL (1.0-4.3); LYMPH % 5.5 % (20.0-40.0); MEAN CELL VOLUME 87.1 fL (81.0-99.0); MEAN CORPUSCULAR HEMOGLOBIN 30.3 pg (27.0-31.0); MEAN CORPUSCULAR HGB CONC 34.7 g/dL (33.0-37.0); MEAN PLATELET VOLUME 8.5 fL (7.2-11.7); MONO # 0.6 K/uL (0.0-0.8); MONO % 5.7 % (0.0-10.0); NEUT # 9.3 K/uL (1.8-7.0); NEUT % 88.5 % (50.0-75.0); PLATELET COUNT 195 K/uL (130-400); RED CELL DISTRIBUTION WIDTH 13.9 % (11.5-14.5); WHITE BLOOD COUNT 10.5 K/uL (4.8-10.8)
[2018-03-21 08:05] LABS: BLOOD UREA NITROGEN 15 mg/dL (7-17); CALCIUM 7.5 mg/dl (8.6-10.4); GFR AFRICAN-AMERICAN > 60; GFR NON-AFRICAN AMERICAN > 60
--- NOTE | 2018-03-21 08:59 | RAD ---
Date of service: 03/21/2018 HISTORY: s/p NGT COMPARISON: 03/18/2018. FINDINGS: The nasogastric tube terminates in the stomach. LUNGS: The lungs are clear. There are low lung volumes. PLEURA: No large pleural effusions, no pneumothorax apparent. CARDIOVASCULAR: Normal. OSSEOUS STRUCTURES: No significant abnormalities. VISUALIZED UPPER ABDOMEN: Normal. OTHER FINDINGS: None. IMPRESSION: Low lung volumes may be related to poor inspiratory effort. No acute findings.
[2018-03-21] MEDS ORDERED: Iodixanol 320 MG/ML 100 ML BOTTLE IV ONE ×2 (09:08→11:02)
[2018-03-21 09:25] LABS: ANISOCYTOSIS SLIGHT; BANDS 9 % (0-2); LYMPHOCYTE 4 % (20-40); MONOCYTE 4 % (0-10); NEUTROPHIL 83 % (50-75); OVALOCYTES SLIGHT; PLATELET ESTIMATE NORMAL (NORMAL); POIKILOCYTOSIS SLIGHT; TOTAL CELLS COUNTED 100
--- NOTE | 2018-03-21 12:02 | CT ---
Date of service: 03/21/2018 PROCEDURE: CT Abdomen and Pelvis with contrast HISTORY: POD#3 lap appy, persistent nausea/vomiting COMPARISON: Comparison is made to the previous study dated 03/18/2018 TECHNIQUE: Contrast dose: 100 mL Visipaque 320. Axial and reformatted coronal and sagittal CT images of the abdomen and pelvis were obtained after IV contrast administration. Radiation dose: Total exam DLP = 786.1 mGy-cm. This CT exam was performed using one or more of the following dose reduction techniques: Automated exposure control, adjustment of the mA and/or kV according to patient size, and/or use of iterative reconstruction technique. FINDINGS: LOWER THORAX: Interval appearance of trace bilateral pleural effusions since the previous exam. Bibasilar atelectasis are also noted. The heart is enlarged. NG tube seen extending to the stomach LIVER: . No significant interval change in the liver noted since the previous exam. Mild intrahepatic biliary ductal dilatation is again noted. GALLBLADDER AND BILE DUCTS: Status post cholecystectomy. Dilated common bile duct is again noted likely due to prior cholecystectomy. PANCREAS: No significant interval change in the pancreas noted since the previous exam. The main pancreatic duct is not dilated. SPLEEN: Unremarkable. ADRENALS: Unremarkable. No mass. KIDNEYS AND URETERS: Again noted are multiple parapelvic cyst bilaterally larger on the left. The kidneys enhance symmetrically. The ureters are not dilated. There is mild wall thickening of the collecting system of the kidneys noted more on the left. Correlate clinically for UTI. VASCULATURE: Unremarkable. No aortic aneurysm. BOWEL: There are bohsas-hk-keonuufaux dilated small bowel loops demonstrate mild diffuse wall thickening. There is moderate wall thickening of the terminal ileum noted. The large bowel are not distended. The differential consideration includes bowel ileus versus low-grade small bowel obstruction. APPENDIX: The patient is status post appendectomy. PERITONEUM: There is a small amount of free fluid in the abdomen and pelvis. No evidence of significant free air. LYMPH NODES: Unremarkable. No enlarged lymph nodes. BLADDER: The urinary bladder is mildly distended. REPRODUCTIVE: Unremarkable. BONES: No acute fracture. OTHER FINDINGS: None. IMPRESSION: Zxwmga-iy-hvpvxpgfub dilated small bowel loops demonstrate mild wall thickening. Moderate wall thickening of the terminal ileum is noted. The differential consideration includes bowel ileus versus low grade small bowel obstruction. Please correlate clinically. Small amount of free fluid in the abdomen and pelvis. Small bilateral pleural effusion and bibasilar atelectasis. Mild soft tissue edema. Postsurgical changes in the anterior abdominal wall.
--- NOTE | 2018-03-21 12:57 | CP.PCM.PN ---
Subjective - Date & Time of Evaluation Date of Evaluation: 03/21/18 Time of Evaluation: 07:15 - Subjective Subjective: General Surgery Progress Note for Dr. Bansal Patient was seen and examined today at bedside in no acute distress. Patient had multiple episodes of overnight bilious vomiting. NGT placed at bedside. Suctioning bilious material. She is passing flatus but no BM yet. Denies CP, SOB , f/c. Objective - Vital Signs/Intake and Output Vital Signs (last 24 hours): Temp Pulse Resp BP Pulse Ox 98.7 F 101 H 20 157/86 H 95 03/21/18 07:25 03/21/18 07:25 03/21/18 07:25 03/21/18 07:25 03/21/18 07:25 Intake and Output: 03/21/18 03/21/18 06:59 18:59 Intake Total 1000 1000 Output Total 250 300 Balance 750 700 - Medications Medications: Current Medications Acetaminophen (Tylenol 325mg Tab) 650 mg PO Q6 PRN PRN Reason: Fever >100.4 F Piperacillin Sod/Tazobactam Sod (Zosyn 3.375 Gm Iv Premix) 3.375 gm in 50 mls @ 100 mls/hr IVPB Q6H [facility] PRN Reason: Protocol Last Admin: 03/21/18 10:54 Dose: 100 mls/hr Metronidazole (Flagyl) 500 mg in 100 mls @ 100 mls/hr IVPB Q8H [facility] PRN Reason: Protocol Last Admin: 03/21/18 06:40 Dose: 100 mls/hr Potassium Chloride/Dextrose/Sod Cl (Potassium Chl 20 Meq In D5-1/2ns) 1,000 mls @ 125 mls/hr IV .Q8H [facility] Last Admin: 03/21/18 05:17 Dose: 125 mls/hr Ketorolac Tromethamine (Toradol) 15 mg IVP Q6 PRN PRN Reason: Pain, moderate (4-7) Metoclopramide HCl (Reglan) 10 mg IVP Q8 PRN PRN Reason: Nausea/Vomiting Last Admin: 03/20/18 22:22 Dose: 10 mg Ondansetron HCl (Zofran Inj) 4 mg IVP Q4 PRN PRN Reason: Nausea/Vomiting Last Admin: 03/21/18 00:24 Dose: 4 mg Pantoprazole Sodium (Protonix Inj) 40 mg IVP DAILY [facility] Last Admin: 03/21/18 10:54 Dose: 40 mg - Labs Labs: 03/21/18 07:00 03/21/18 07:00 PT 12.5 SECONDS (9.7-12.2) H 03/18/18 13:43 INR 1.1 03/18/18 13:43 APTT 31 SECONDS (21-34) 03/18/18 13:43 - Constitutional Appears: Non-toxic, No Acute Distress - Head Exam Head Exam: ATRAUMATIC, NORMOCEPHALIC - Eye Exam Eye Exam: EOMI, Normal appearance - ENT Exam ENT Exam: Mucous Membranes Moist, Normal Exam - Respiratory Exam Respiratory Exam: NORMAL BREATHING PATTERN. absent: Rales, Respiratory Distress , Stridor - Cardiovascular Exam Cardiovascular Exam: +S1, +S2. absent: Murmur - GI/Abdominal Exam GI & Abdominal Exam: Soft. absent: Firm, Guarding, Rigid, Tenderness - Neurological Exam Neurological Exam: Alert, Awake, Oriented x3 - Psychiatric Exam Psychiatric exam: Normal Affect, Normal Mood - Skin Skin Exam: Dry, Intact, Normal Color, Warm Assessment and Plan - Assessment and Plan (Free Text) Assessment: 77yoF with appendicitis s/p lap appy POD#3 Plan: - NGT placed, suctioning bilious material. Cont NPO - Hypokalemia of K 3.4, replete as necessary - VSS, monitor BP - PT recommends [facility] - will discuss with case management - given one time dose Ambien for this pm - Discussed plan with Dr. Rolf Murphy PGY1
[2018-03-21] MEDS ORDERED: Potassium Chloride 20 mEq ER Tab PO ONE (13:08)
--- NOTE | 2018-03-21 16:48 | CP.PCM.PN ---
Subjective - Date & Time of Evaluation Date of Evaluation: 03/21/18 Time of Evaluation: 16:48 Objective - Vital Signs/Intake and Output Vital Signs (last 24 hours): Temp Pulse Resp BP Pulse Ox 98.2 F 88 20 152/90 H 94 L 03/21/18 16:12 03/21/18 16:12 03/21/18 16:12 03/21/18 16:12 03/21/18 16:12 Intake and Output: 03/21/18 03/21/18 06:59 18:59 Intake Total 1000 1000 Output Total 250 300 Balance 750 700 - Medications Medications: Current Medications Acetaminophen (Tylenol 325mg Tab) 650 mg PO Q6 PRN PRN Reason: Fever >100.4 F Aspirin (Ecotrin) 81 mg PO DAILY [facility] Piperacillin Sod/Tazobactam Sod (Zosyn 3.375 Gm Iv Premix) 3.375 gm in 50 mls @ 100 mls/hr IVPB Q6H [facility] PRN Reason: Protocol Last Admin: 03/21/18 10:54 Dose: 100 mls/hr Metronidazole (Flagyl) 500 mg in 100 mls @ 100 mls/hr IVPB Q8H [facility] PRN Reason: Protocol Last Admin: 03/21/18 15:00 Dose: 100 mls/hr Potassium Chloride/Dextrose/Sod Cl (Potassium Chl 20 Meq In D5-1/2ns) 1,000 mls @ 125 mls/hr IV .Q8H [facility] Last Admin: 03/21/18 14:35 Dose: 125 mls/hr Ketorolac Tromethamine (Toradol) 15 mg IVP Q6 PRN PRN Reason: Pain, moderate (4-7) Metoclopramide HCl (Reglan) 10 mg IVP Q8 PRN PRN Reason: Nausea/Vomiting Last Admin: 03/20/18 22:22 Dose: 10 mg Metoprolol Succinate (Toprol Xl) 50 mg PO DAILY [facility] Ondansetron HCl (Zofran Inj) 4 mg IVP Q4 PRN PRN Reason: Nausea/Vomiting Last Admin: 03/21/18 00:24 Dose: 4 mg Pantoprazole Sodium (Protonix Inj) 40 mg IVP DAILY [facility] Last Admin: 03/21/18 10:54 Dose: 40 mg Rosuvastatin Calcium (Crestor) 10 mg PO HS [facility] Zolpidem Tartrate (Ambien) 5 mg PO HS ONE Stop: 03/21/18 19:01 - Labs Labs: 03/21/18 07:00 03/21/18 07:00 PT 12.5 SECONDS (9.7-12.2) H 03/18/18 13:43 INR 1.1 03/18/18 13:43 APTT 31 SECONDS (21-34) 03/18/18 13:43
[2018-03-22] MEDS: Potassium Ch 20mEq in D5-1/2NS 1,000 ML IV SCH ×3 (03:50→21:07)
[2018-03-22] MEDS: Piperacill/Tazo 3.375gm in Dex 3.375 GM/50 ML BAG IVPB SCH ×4 (03:50→21:10)
[2018-03-22] MEDS: metroNIDAZOLE IV 500 mg/100 ml 500 MG/100 ML BAG IVPB SCH ×3 (05:43→21:08)
[2018-03-22 08:14] LABS: BASO % 0.3 % (0.0-2.0); EOS # 0.1 K/uL (0.0-0.7); EOS % 1.9 % (0.0-4.0); HEMOGLOBIN 11.1 g/dL (11.0-16.0); LYMPH # 0.5 K/uL (1.0-4.3); LYMPH % 6.9 % (20.0-40.0); MEAN CELL VOLUME 86.5 fL (81.0-99.0); MEAN CORPUSCULAR HEMOGLOBIN 30.4 pg (27.0-31.0); MEAN CORPUSCULAR HGB CONC 35.1 g/dL (33.0-37.0); MEAN PLATELET VOLUME 8.4 fL (7.2-11.7); MONO # 0.6 K/uL (0.0-0.8); MONO % 8.3 % (0.0-10.0); NEUT # 6.4 K/uL (1.8-7.0); NEUT % 82.6 % (50.0-75.0); PLATELET COUNT 184 K/uL (130-400); RBC 3.65 Mil/uL (3.80-5.20); RED CELL DISTRIBUTION WIDTH 13.9 % (11.5-14.5); WHITE BLOOD COUNT 7.7 K/uL (4.8-10.8)
--- NOTE | 2018-03-22 08:16 | CP.PCM.PN ---
Subjective - Date & Time of Evaluation Date of Evaluation: 03/22/18 Time of Evaluation: 07:40 - Subjective Subjective: Pt seen and examined at bedside this AM. Pt had bowel movements and passing gas yesterday and NGT was discontinued and she was started on CLD. Pt complaining of pain in the lower abdomen since 5 AM today but is passing gas, had intermitten nausea now resolved Objective - Vital Signs/Intake and Output Vital Signs (last 24 hours): Temp Pulse Resp BP Pulse Ox 98 F 88 20 139/74 97 03/22/18 08:01 03/22/18 08:01 03/22/18 08:01 03/22/18 08:01 03/22/18 08:01 Intake and Output: 03/22/18 03/22/18 06:59 18:59 Intake Total 1065 Balance 1065 - Medications Medications: Current Medications Acetaminophen (Tylenol 325mg Tab) 650 mg PO Q6 PRN PRN Reason: Fever >100.4 F Aspirin (Ecotrin) 81 mg PO DAILY [facility] Piperacillin Sod/Tazobactam Sod (Zosyn 3.375 Gm Iv Premix) 3.375 gm in 50 mls @ 100 mls/hr IVPB Q6H [facility] PRN Reason: Protocol Last Admin: 03/22/18 03:50 Dose: 100 mls/hr Metronidazole (Flagyl) 500 mg in 100 mls @ 100 mls/hr IVPB Q8H [facility] PRN Reason: Protocol Last Admin: 03/22/18 05:43 Dose: 100 mls/hr Potassium Chloride/Dextrose/Sod Cl (Potassium Chl 20 Meq In D5-1/2ns) 1,000 mls @ 125 mls/hr IV .Q8H [facility] Last Admin: 03/22/18 03:50 Dose: 125 mls/hr Ketorolac Tromethamine (Toradol) 15 mg IVP Q6 PRN PRN Reason: Pain, moderate (4-7) Last Admin: 03/22/18 05:42 Dose: 15 mg Metoclopramide HCl (Reglan) 10 mg IVP Q8 PRN PRN Reason: Nausea/Vomiting Last Admin: 03/20/18 22:22 Dose: 10 mg Metoprolol Succinate (Toprol Xl) 50 mg PO DAILY [facility] Ondansetron HCl (Zofran Inj) 4 mg IVP Q4 PRN PRN Reason: Nausea/Vomiting Last Admin: 03/21/18 00:24 Dose: 4 mg Pantoprazole Sodium (Protonix Inj) 40 mg IVP DAILY [facility] Last Admin: 03/21/18 10:54 Dose: 40 mg Rosuvastatin Calcium (Crestor) 10 mg PO HS [facility] - Labs Labs: 03/21/18 07:00 03/21/18 07:00 PT 12.5 SECONDS (9.7-12.2) H 03/18/18 13:43 INR 1.1 03/18/18 13:43 APTT 31 SECONDS (21-34) 03/18/18 13:43 - Constitutional Appears: Well, Non-toxic, No Acute Distress - Head Exam Head Exam: ATRAUMATIC, NORMOCEPHALIC - Eye Exam Eye Exam: Normal appearance. absent: Conjunctival injection, Scleral icterus - ENT Exam ENT Exam: Mucous Membranes Moist, Normal Oropharynx - Respiratory Exam Respiratory Exam: NORMAL BREATHING PATTERN. absent: Accessory Muscle Use, Respiratory Distress - GI/Abdominal Exam GI & Abdominal Exam: Distended (moderate), Soft, Tenderness (moderate, BL lower quadrants). absent: Rebound Additional comments: incisions well approximated, no surrounding erythema or drainage - Extremities Exam Extremities Exam: absent: Calf Tenderness, Pedal Edema, Tenderness - Neurological Exam Neurological Exam: Alert, Awake, Oriented x3 - Psychiatric Exam Psychiatric exam: Normal Affect, Normal Mood - Skin Skin Exam: Dry, Normal Color, Warm Assessment and Plan - Assessment and Plan (Free Text) Assessment: 77F POD#4 s/p laparoscopic appendectomy for acute appendicitis with post operative ileus vs SBO, no resolved Plan: Make patient NPO today d/t increased pain--may consider restarting CLD when pain resolves Ambulate often PRN nausea/pain medication Continue to monitor for bowel function Continue antibiotics Discussed with Dr. Bansal, who agrees with above Pema Blanco, PGY2
[2018-03-22 08:17] LABS: BLOOD UREA NITROGEN 12 mg/dL (7-17); CALCIUM 8.2 mg/dl (8.6-10.4); GFR AFRICAN-AMERICAN > 60; GFR NON-AFRICAN AMERICAN > 60
[2018-03-22] MEDS ORDERED: Potassium & Sodium Phosphate PO ONE (09:10)
[2018-03-22] MEDS ORDERED: Potassium Phosphate 15 MMOLE in Sodium Chloride 0.9% 250 ML IV ONE (10:00)
[2018-03-22] MEDS: Metoprolol Succinate 50 mg XL Tab PO SCH (10:45)
[2018-03-22 11:36] LABS: EOSINOPHIL 1 % (0-4); LYMPHOCYTE 10 % (20-40); NEUTROPHIL 89 % (50-75); TOTAL CELLS COUNTED 100
[2018-03-22 11:37] LABS: PLATELET ESTIMATE NORMAL (NORMAL)
--- NOTE | 2018-03-22 14:46 | CP.PCM.PN ---
Subjective - Date & Time of Evaluation Date of Evaluation: 03/22/18 Time of Evaluation: 14:46 Objective - Vital Signs/Intake and Output Vital Signs (last 24 hours): Temp Pulse Resp BP Pulse Ox 98 F 88 20 139/74 97 03/22/18 08:01 03/22/18 08:01 03/22/18 08:01 03/22/18 08:01 03/22/18 08:01 Intake and Output: 03/22/18 03/22/18 06:59 18:59 Intake Total 1065 1150 Balance 1065 1150 - Medications Medications: Current Medications Acetaminophen (Tylenol 325mg Tab) 650 mg PO Q6 PRN PRN Reason: Fever >100.4 F Aspirin (Ecotrin) 81 mg PO DAILY [facility] Last Admin: 03/22/18 10:45 Dose: 81 mg Piperacillin Sod/Tazobactam Sod (Zosyn 3.375 Gm Iv Premix) 3.375 gm in 50 mls @ 100 mls/hr IVPB Q6H [facility] PRN Reason: Protocol Last Admin: 03/22/18 10:45 Dose: 100 mls/hr Metronidazole (Flagyl) 500 mg in 100 mls @ 100 mls/hr IVPB Q8H [facility] PRN Reason: Protocol Last Admin: 03/22/18 14:25 Dose: 100 mls/hr Potassium Chloride/Dextrose/Sod Cl (Potassium Chl 20 Meq In D5-1/2ns) 1,000 mls @ 125 mls/hr IV .Q8H [facility] Last Admin: 03/22/18 12:53 Dose: Not Given Ketorolac Tromethamine (Toradol) 15 mg IVP Q6 PRN PRN Reason: Pain, moderate (4-7) Last Admin: 03/22/18 05:42 Dose: 15 mg Metoclopramide HCl (Reglan) 10 mg IVP Q8 PRN PRN Reason: Nausea/Vomiting Last Admin: 03/20/18 22:22 Dose: 10 mg Metoprolol Succinate (Toprol Xl) 50 mg PO DAILY [facility] Last Admin: 03/22/18 10:45 Dose: 50 mg Ondansetron HCl (Zofran Inj) 4 mg IVP Q4 PRN PRN Reason: Nausea/Vomiting Last Admin: 03/21/18 00:24 Dose: 4 mg Pantoprazole Sodium (Protonix Inj) 40 mg IVP DAILY [facility] Last Admin: 03/22/18 10:45 Dose: 40 mg Rosuvastatin Calcium (Crestor) 10 mg PO HS [facility] Last Admin: 03/22/18 10:45 Dose: 10 mg Zolpidem Tartrate (Ambien) 2.5 mg PO HS PRN PRN Reason: Insomnia - Labs Labs: 03/22/18 07:51 03/22/18 07:51 PT 12.5 SECONDS (9.7-12.2) H 03/18/18 13:43 INR 1.1 03/18/18 13:43 APTT 31 SECONDS (21-34) 03/18/18 13:43
[2018-03-23] MEDS: Potassium Ch 20mEq in D5-1/2NS 1,000 ML IV SCH ×3 (02:29→15:50)
[2018-03-23] MEDS: Piperacill/Tazo 3.375gm in Dex 3.375 GM/50 ML BAG IVPB SCH ×2 (04:17→10:19)
[2018-03-23] MEDS: metroNIDAZOLE IV 500 mg/100 ml 500 MG/100 ML BAG IVPB SCH (05:09)
[2018-03-23] MEDS ORDERED: Albuterol-Ipratrop 3 mg / 0.5 (3 ml) UD INH STA (07:33)
[2018-03-23] MEDS ORDERED: Albuterol-Ipratrop 3 mg / 0.5 (3 ml) UD INH PRN (08:35)
--- NOTE | 2018-03-23 08:39 | CP.PCM.PN ---
Subjective - Date & Time of Evaluation Date of Evaluation: 03/23/18 Time of Evaluation: 06:30 - Subjective Subjective: Pt seen and examined this AM. Overnight patient had increased lower abdominal pain resolved with toradol. patient also had 3 episodes of diarrhea and one episode of loose dark brown stool this AM. Denies any nausea, tolerated her CLD yesterday afternoon, and states she is hungry. patient complains of SOB this AM , denies any chest pain or palpitations. Pt states she has this dyspnea at home and takes "a pump" for it. Objective - Vital Signs/Intake and Output Vital Signs (last 24 hours): Temp Pulse Resp BP Pulse Ox 98.5 F 73 20 153/71 H 96 03/23/18 08:17 03/23/18 08:17 03/23/18 08:17 03/23/18 08:17 03/23/18 08:17 Intake and Output: 03/23/18 03/23/18 06:59 18:59 Intake Total 685 Balance 685 - Medications Medications: Current Medications Acetaminophen (Tylenol 325mg Tab) 650 mg PO Q6 PRN PRN Reason: Fever >100.4 F Albuterol/Ipratropium (Duoneb 3 Mg/0.5 Mg (3 Ml) Ud) 3 ml INH RQ6 PRN PRN Reason: Shortness of Breath Aspirin (Ecotrin) 81 mg PO DAILY [facility] Last Admin: 03/22/18 10:45 Dose: 81 mg Piperacillin Sod/Tazobactam Sod (Zosyn 3.375 Gm Iv Premix) 3.375 gm in 50 mls @ 100 mls/hr IVPB Q6H [facility] PRN Reason: Protocol Last Admin: 03/23/18 04:17 Dose: 100 mls/hr Metronidazole (Flagyl) 500 mg in 100 mls @ 100 mls/hr IVPB Q8H [facility] PRN Reason: Protocol Last Admin: 03/23/18 05:09 Dose: 100 mls/hr Potassium Chloride/Dextrose/Sod Cl (Potassium Chl 20 Meq In D5-1/2ns) 1,000 mls @ 75 mls/hr IV .[id number] [facility] Last Admin: 03/23/18 02:29 Dose: 75 mls/hr Metoclopramide HCl (Reglan) 10 mg IVP Q8 PRN PRN Reason: Nausea/Vomiting Last Admin: 03/20/18 22:22 Dose: 10 mg Metoprolol Succinate (Toprol Xl) 50 mg PO DAILY [facility] Last Admin: 03/22/18 10:45 Dose: 50 mg Ondansetron HCl (Zofran Inj) 4 mg IVP Q4 PRN PRN Reason: Nausea/Vomiting Last Admin: 03/21/18 00:24 Dose: 4 mg Pantoprazole Sodium (Protonix Inj) 40 mg IVP DAILY [facility] Last Admin: 03/22/18 10:45 Dose: 40 mg Rosuvastatin Calcium (Crestor) 10 mg PO HS [facility] Last Admin: 03/22/18 21:20 Dose: 10 mg Zolpidem Tartrate (Ambien) 2.5 mg PO HS PRN PRN Reason: Insomnia Last Admin: 03/22/18 21:20 Dose: 2.5 mg - Labs Labs: 03/22/18 07:51 03/22/18 07:51 PT 12.5 SECONDS (9.7-12.2) H 03/18/18 13:43 INR 1.1 03/18/18 13:43 APTT 31 SECONDS (21-34) 03/18/18 13:43 - Constitutional Appears: Well, Non-toxic, No Acute Distress - Head Exam Head Exam: ATRAUMATIC, NORMOCEPHALIC - Eye Exam Eye Exam: Normal appearance. absent: Conjunctival injection, Scleral icterus - ENT Exam ENT Exam: Mucous Membranes Moist, Normal Oropharynx - Respiratory Exam Respiratory Exam: NORMAL BREATHING PATTERN. absent: Accessory Muscle Use, Respiratory Distress - Cardiovascular Exam Cardiovascular Exam: RRR - GI/Abdominal Exam GI & Abdominal Exam: Distended (moderate), Soft. absent: Tenderness, Rebound Additional comments: surgical incision well approximated with steristrips, no drainage or erythema - Extremities Exam Extremities Exam: absent: Calf Tenderness, Pedal Edema, Tenderness - Neurological Exam Neurological Exam: Alert, Awake, Oriented x3 - Psychiatric Exam Psychiatric exam: Normal Affect, Normal Mood - Skin Skin Exam: Dry, Intact, Normal Color, Warm Assessment and Plan - Assessment and Plan (Free Text) Assessment: 77F POD#5 S/P appendectomy with post op ileus, now resolving, and new dyspnea Plan: F/U AM labs--hypokalemia and hypophosphatemia yesterday, will replete if needed Continue CLD for breakfast, if tolerating will advance for lunch Add duonebs PRN for SOB PRN pain medication Encourage ambulation, SCD's Discussed with Dr. Bansal, who agrees with above Pema Iglesias, PGY2
[2018-03-23 09:20] LABS: HEMOGLOBIN 11.1 g/dL (11.0-16.0); MEAN CELL VOLUME 86.2 fL (81.0-99.0); MEAN CORPUSCULAR HEMOGLOBIN 30.3 pg (27.0-31.0); MEAN CORPUSCULAR HGB CONC 35.2 g/dL (33.0-37.0); MEAN PLATELET VOLUME 8.5 fL (7.2-11.7); RBC 3.66 Mil/uL (3.80-5.20); RED CELL DISTRIBUTION WIDTH 13.6 % (11.5-14.5); WHITE BLOOD COUNT 6.9 K/uL (4.8-10.8)
[2018-03-23 09:41] LABS: BLOOD UREA NITROGEN 10 mg/dL (7-17); CALCIUM 8.1 mg/dl (8.6-10.4); GFR AFRICAN-AMERICAN > 60; GFR NON-AFRICAN AMERICAN > 60
[2018-03-23] MEDS ORDERED: Potassium & Sodium Phosphate PO ONE (09:52)
[2018-03-23] MEDS: Metoprolol Succinate 50 mg XL Tab PO SCH (10:20)
[2018-03-23] MEDS: Potassium Chloride 20 mEq ER Tab PO SCH (10:20)
[2018-03-24] MEDS: Potassium Ch 20mEq in D5-1/2NS 1,000 ML IV SCH ×2 (02:34→12:59)
--- NOTE | 2018-03-24 07:50 | CP.PCM.PN ---
Subjective - Date & Time of Evaluation Date of Evaluation: 03/24/18 Time of Evaluation: 06:30 - Subjective Subjective: GENERAL SURGERY PROGRESS NOTE FOR DR. GRUBBS Patient seen and examined at bedside. She denies nausea or vomiting. She is passing flatus and having BMs. Objective - Vital Signs/Intake and Output Vital Signs (last 24 hours): Temp Pulse Resp BP Pulse Ox 98.2 F 76 20 165/79 H 95 03/24/18 00:00 03/24/18 00:00 03/24/18 00:00 03/24/18 00:00 03/24/18 00:00 Intake and Output: 03/24/18 03/24/18 06:59 18:59 Intake Total 800 840 Balance 800 840 - Medications Medications: Current Medications Acetaminophen (Tylenol 325mg Tab) 650 mg PO Q6 PRN PRN Reason: Fever >100.4 F Albuterol/Ipratropium (Duoneb 3 Mg/0.5 Mg (3 Ml) Ud) 3 ml INH RQ6 PRN PRN Reason: Shortness of Breath Aspirin (Ecotrin) 81 mg PO DAILY [facility] Last Admin: 03/23/18 10:20 Dose: 81 mg Potassium Chloride/Dextrose/Sod Cl (Potassium Chl 20 Meq In D5-1/2ns) 1,000 mls @ 75 mls/hr IV .[id number] [facility] Last Admin: 03/24/18 02:34 Dose: 75 mls/hr Metoclopramide HCl (Reglan) 10 mg IVP Q8 PRN PRN Reason: Nausea/Vomiting Last Admin: 03/24/18 03:58 Dose: 10 mg Metoprolol Succinate (Toprol Xl) 50 mg PO DAILY [facility] Last Admin: 03/23/18 10:20 Dose: 50 mg Ondansetron HCl (Zofran Inj) 4 mg IVP Q4 PRN PRN Reason: Nausea/Vomiting Last Admin: 03/23/18 12:17 Dose: 4 mg Pantoprazole Sodium (Protonix Inj) 40 mg IVP DAILY [facility] Last Admin: 03/23/18 10:20 Dose: 40 mg Potassium Chloride (K-Dur 20 Meq Er Tab) 40 meq PO DAILY [facility] Last Admin: 03/23/18 10:20 Dose: 40 meq Rosuvastatin Calcium (Crestor) 10 mg PO HS [facility] Last Admin: 03/23/18 21:23 Dose: 10 mg Zolpidem Tartrate (Ambien) 2.5 mg PO HS PRN PRN Reason: Insomnia Last Admin: 03/23/18 20:32 Dose: 2.5 mg - Labs Labs: 03/23/18 08:58 03/23/18 08:58 PT 12.5 SECONDS (9.7-12.2) H 03/18/18 13:43 INR 1.1 03/18/18 13:43 APTT 31 SECONDS (21-34) 03/18/18 13:43 - Constitutional Appears: Non-toxic, No Acute Distress - Head Exam Head Exam: ATRAUMATIC, NORMAL INSPECTION - Eye Exam Eye Exam: EOMI, Normal appearance - Respiratory Exam Respiratory Exam: NORMAL BREATHING PATTERN. absent: Respiratory Distress - Cardiovascular Exam Cardiovascular Exam: +S1, +S2 - GI/Abdominal Exam GI & Abdominal Exam: Distended, Soft. absent: Firm, Guarding, Rigid, Tenderness , Rebound Additional comments: steri strips in place - Neurological Exam Neurological Exam: Alert, Awake, Oriented x3 - Psychiatric Exam Psychiatric exam: Normal Affect, Normal Mood - Skin Skin Exam: Dry, Normal Color, Warm Assessment and Plan - Assessment and Plan (Free Text) Assessment: 77yo F with appendicitis s/p laparoscopic appendectomy POD#6 with post op ileus - Small bowel series ordered - Pt having bowel function but remains distended - Encouraged ambulation with PT and IS use - Discussed plan with Dr. Rolf Jennings PGY-4
[2018-03-24 08:24] LABS: HEMOGLOBIN 11.6 g/dL (11.0-16.0); MEAN CORPUSCULAR HEMOGLOBIN 29.5 pg (27.0-31.0); MEAN CORPUSCULAR HGB CONC 34.7 g/dL (33.0-37.0); RBC 3.94 Mil/uL (3.80-5.20); RED CELL DISTRIBUTION WIDTH 13.8 % (11.5-14.5); WHITE BLOOD COUNT 7.8 K/uL (4.8-10.8)
[2018-03-24 08:36] LABS: BLOOD UREA NITROGEN 7 mg/dL (7-17); CALCIUM 8.1 mg/dl (8.6-10.4); GFR AFRICAN-AMERICAN > 60; GFR NON-AFRICAN AMERICAN > 60
[2018-03-24] MEDS: Potassium & Sodium Phosphate PO SCH (10:43)
[2018-03-24] MEDS: Potassium Chloride 20 mEq ER Tab PO SCH (10:43)
[2018-03-24] MEDS: Metoprolol Succinate 50 mg XL Tab PO SCH (10:43)
[2018-03-24] MEDS ORDERED: Barium Sulfate for Susp 96% w/w 176g Bottle PR ONE (12:49)
--- NOTE | 2018-03-24 18:30 | CP.PCM.PN ---
Subjective - Date & Time of Evaluation Date of Evaluation: 03/24/18 Time of Evaluation: 18:30 Objective - Vital Signs/Intake and Output Vital Signs (last 24 hours): Temp Pulse Resp BP Pulse Ox 98.7 F 75 20 154/70 H 96 03/24/18 08:28 03/24/18 08:28 03/24/18 08:28 03/24/18 08:28 03/24/18 08:28 Intake and Output: 03/24/18 03/24/18 06:59 18:59 Intake Total 800 1485 Balance 800 1485 - Medications Medications: Current Medications Acetaminophen (Tylenol 325mg Tab) 650 mg PO Q6 PRN PRN Reason: Fever >100.4 F Albuterol/Ipratropium (Duoneb 3 Mg/0.5 Mg (3 Ml) Ud) 3 ml INH RQ6 PRN PRN Reason: Shortness of Breath Last Admin: 03/24/18 09:01 Dose: 3 ml Aspirin (Ecotrin) 81 mg PO DAILY [facility] Last Admin: 03/24/18 10:43 Dose: 81 mg Potassium Chloride/Dextrose/Sod Cl (Potassium Chl 20 Meq In D5-1/2ns) 1,000 mls @ 40 mls/hr IV .Q24H [facility] Last Admin: 03/24/18 12:59 Dose: 40 mls/hr Metoclopramide HCl (Reglan) 10 mg IVP Q8 PRN PRN Reason: Nausea/Vomiting Last Admin: 03/24/18 03:58 Dose: 10 mg Metoprolol Succinate (Toprol Xl) 50 mg PO DAILY [facility] Last Admin: 03/24/18 10:43 Dose: 50 mg Ondansetron HCl (Zofran Inj) 4 mg IVP Q4 PRN PRN Reason: Nausea/Vomiting Last Admin: 03/23/18 12:17 Dose: 4 mg Pantoprazole Sodium (Protonix Inj) 40 mg IVP DAILY [facility] Last Admin: 03/24/18 10:42 Dose: 40 mg Potassium Chloride (K-Dur 20 Meq Er Tab) 40 meq PO DAILY [facility] Last Admin: 03/24/18 10:43 Dose: 40 meq Potassium Phos/Sodium Phos (Neutra-Phos) 1 pkt PO DAILY [facility] Last Admin: 03/24/18 10:43 Dose: 1 pkt Rosuvastatin Calcium (Crestor) 10 mg PO HS [facility] Last Admin: 03/23/18 21:23 Dose: 10 mg Sodium Chloride (Sodium Chloride Tab) 1 gm PO BID [facility] Zolpidem Tartrate (Ambien) 2.5 mg PO HS PRN PRN Reason: Insomnia Last Admin: 03/23/18 20:32 Dose: 2.5 mg - Labs Labs: 03/24/18 08:08 03/24/18 08:08 PT 12.5 SECONDS (9.7-12.2) H 03/18/18 13:43 INR 1.1 03/18/18 13:43 APTT 31 SECONDS (21-34) 03/18/18 13:43
--- NOTE | 2018-03-24 18:51 | RAD ---
Date of service: 03/24/2018 PROCEDURE: Small bowel follow-through HISTORY: SBO s/p lap appy COMPARISON: CT abdomen and pelvis with contrast performed 03/21/18 FINDINGS: Images with including spot films were submitted for review. Right upper quadrant surgical clips. Dilated loops of small bowel with stacked coin appearance noted. Spot views provided appear to demonstrate oral contrast within the right colon. No clear evidence of stricture or contrast extravasation appreciated. IMPRESSION: Limited study demonstrates dilated loops of small bowel. Contrast appears to enter the right colon on provided spot images. Findings favor ileus. Recommend abdominal x-ray to confirm progression of oral contrast within the colon.
[2018-03-25 08:03] LABS: HEMOGLOBIN 12.1 g/dL (11.0-16.0); MEAN CELL VOLUME 85.2 fL (81.0-99.0); MEAN CORPUSCULAR HEMOGLOBIN 29.9 pg (27.0-31.0); MEAN CORPUSCULAR HGB CONC 35.1 g/dL (33.0-37.0); RBC 4.06 Mil/uL (3.80-5.20); RED CELL DISTRIBUTION WIDTH 13.9 % (11.5-14.5); WHITE BLOOD COUNT 6.7 K/uL (4.8-10.8)
--- NOTE | 2018-03-25 08:28 | CP.PCM.PN ---
Subjective - Date & Time of Evaluation Date of Evaluation: 03/25/18 Time of Evaluation: 06:40 - Subjective Subjective: General Surgery Note for Dr. Bansal Patient was seen and examined today at bedside in no acute distress. Nurse reports no overnight events. Patient denies n/v. She is passing flatus and had a BM last night. Denies CP, SOB, f/c. Objective - Vital Signs/Intake and Output Vital Signs (last 24 hours): Temp Pulse Resp BP Pulse Ox 98.1 F 73 20 156/77 H 96 03/25/18 00:00 03/25/18 00:00 03/25/18 00:00 03/25/18 00:00 03/25/18 00:00 Intake and Output: 03/25/18 03/25/18 06:59 18:59 Intake Total 1040 Balance 1040 - Medications Medications: Current Medications Acetaminophen (Tylenol 325mg Tab) 650 mg PO Q6 PRN PRN Reason: Fever >100.4 F Last Admin: 03/25/18 06:10 Dose: 650 mg Albuterol/Ipratropium (Duoneb 3 Mg/0.5 Mg (3 Ml) Ud) 3 ml INH RQ6 PRN PRN Reason: Shortness of Breath Last Admin: 03/24/18 09:01 Dose: 3 ml Aspirin (Ecotrin) 81 mg PO DAILY [facility] Last Admin: 03/24/18 10:43 Dose: 81 mg Potassium Chloride/Dextrose/Sod Cl (Potassium Chl 20 Meq In D5-1/2ns) 1,000 mls @ 40 mls/hr IV .Q24H [facility] Last Admin: 03/24/18 12:59 Dose: 40 mls/hr Metoclopramide HCl (Reglan) 10 mg IVP Q8 PRN PRN Reason: Nausea/Vomiting Last Admin: 03/24/18 03:58 Dose: 10 mg Metoprolol Succinate (Toprol Xl) 50 mg PO DAILY [facility] Last Admin: 03/24/18 10:43 Dose: 50 mg Ondansetron HCl (Zofran Inj) 4 mg IVP Q4 PRN PRN Reason: Nausea/Vomiting Last Admin: 03/23/18 12:17 Dose: 4 mg Pantoprazole Sodium (Protonix Inj) 40 mg IVP DAILY [facility] Last Admin: 03/24/18 10:42 Dose: 40 mg Potassium Chloride (K-Dur 20 Meq Er Tab) 40 meq PO DAILY [facility] Last Admin: 03/24/18 10:43 Dose: 40 meq Potassium Phos/Sodium Phos (Neutra-Phos) 1 pkt PO DAILY [facility] Last Admin: 03/24/18 10:43 Dose: 1 pkt Rosuvastatin Calcium (Crestor) 10 mg PO HS [facility] Last Admin: 03/24/18 21:09 Dose: 10 mg Sodium Chloride (Sodium Chloride Tab) 1 gm PO BID [facility] Last Admin: 03/24/18 18:39 Dose: 1 gm Zolpidem Tartrate (Ambien) 2.5 mg PO HS PRN PRN Reason: Insomnia Last Admin: 03/24/18 21:11 Dose: 2.5 mg - Labs Labs: 03/25/18 07:52 03/24/18 08:08 PT 12.5 SECONDS (9.7-12.2) H 03/18/18 13:43 INR 1.1 03/18/18 13:43 APTT 31 SECONDS (21-34) 03/18/18 13:43 - Constitutional Appears: Non-toxic, No Acute Distress - Head Exam Head Exam: ATRAUMATIC, NORMOCEPHALIC - ENT Exam ENT Exam: Mucous Membranes Moist, Normal Exam - Respiratory Exam Respiratory Exam: NORMAL BREATHING PATTERN. absent: Rales, Rhonchi, Respiratory Distress - Cardiovascular Exam Cardiovascular Exam: +S1, +S2 - GI/Abdominal Exam GI & Abdominal Exam: Distended, Soft. absent: Guarding, Rigid, Tenderness Additional comments: steri strips in place, area c/d/i - Extremities Exam Extremities Exam: Normal Capillary Refill. absent: Tenderness - Neurological Exam Neurological Exam: Alert, Awake, Oriented x3 - Skin Skin Exam: Dry, Intact, Normal Color, Warm Assessment and Plan - Assessment and Plan (Free Text) Assessment: 77yoF with appendicitis s/p laparoscopic appendectomy POD#7 with post-op ileus Plan: - advanced to FLD, ADAT - small bowel series appreciated - having bowel function but remains distended - encourage IS, OOB ambulation, PT - fidencio AM labs, correct electrolytes as needed - further recs per Dr. Rolf Murphy PGY1
[2018-03-25 08:49] LABS: BLOOD UREA NITROGEN 7 mg/dL (7-17); CALCIUM 8.5 mg/dl (8.6-10.4); GFR AFRICAN-AMERICAN > 60; GFR NON-AFRICAN AMERICAN > 60
[2018-03-25] MEDS: Potassium Ch 20mEq in D5-1/2NS 1,000 ML IV SCH (10:25)
--- NOTE | 2018-03-25 10:29 | RAD ---
Date of service: 03/25/2018 HISTORY: evaluate contrast progression COMPARISON: 03/20/2018 small bowel series 03/24/2000 FINDINGS: BOWEL: There is contrast seen within throughout the colon which is not dilated. The rectosigmoid colon is redundant with multiple diverticuli here suggested. The small bowel loops that are present are minimally distended measuring in some parts up to 4 cm in width. BONES: Unremarkable as visualized. OTHER FINDINGS: None. IMPRESSION: No complete or high-grade small bowel obstruction suggested. Contrast does progress from the preceding small-bowel series into an throughout the entire colon into the rectosigmoid colon segment. No colonic distension suggested. Incidental rectosigmoid diverticulosis noted. Of the gas-filled small bowel loops that are visualized mainly in the mid central and left sided abdomen these tubes are borderline minimally distended some parts of the 4 cm. A localized small bowel ileus or a a very low grade intermittent small bowel obstruction is compatible with this. No high-grade small-bowel obstruction is inferred given the serial imaging studies provided.
[2018-03-25] MEDS: Potassium Chloride 20 mEq ER Tab PO SCH (11:00)
[2018-03-25] MEDS: Potassium & Sodium Phosphate PO SCH (11:00)
[2018-03-25] MEDS: Metoprolol Succinate 50 mg XL Tab PO SCH (11:00)
--- NOTE | 2018-03-25 15:44 | CP.PCM.PN ---
Subjective - Date & Time of Evaluation Date of Evaluation: 03/25/18 Time of Evaluation: 15:44 Objective - Vital Signs/Intake and Output Vital Signs (last 24 hours): Temp Pulse Resp BP Pulse Ox 98.7 F 68 20 135/77 96 03/25/18 08:00 03/25/18 08:00 03/25/18 08:00 03/25/18 08:00 03/25/18 08:00 Intake and Output: 03/25/18 03/25/18 06:59 18:59 Intake Total 1040 580 Balance 1040 580 - Medications Medications: Current Medications Acetaminophen (Tylenol 325mg Tab) 650 mg PO Q6 PRN PRN Reason: Fever >100.4 F Last Admin: 03/25/18 06:10 Dose: 650 mg Albuterol/Ipratropium (Duoneb 3 Mg/0.5 Mg (3 Ml) Ud) 3 ml INH RQ6 PRN PRN Reason: Shortness of Breath Last Admin: 03/24/18 09:01 Dose: 3 ml Aspirin (Ecotrin) 81 mg PO DAILY [facility] Last Admin: 03/25/18 11:00 Dose: 81 mg Potassium Chloride/Dextrose/Sod Cl (Potassium Chl 20 Meq In D5-1/2ns) 1,000 mls @ 40 mls/hr IV .Q24H [facility] Last Admin: 03/25/18 10:25 Dose: 40 mls/hr Metoclopramide HCl (Reglan) 10 mg IVP Q8 PRN PRN Reason: Nausea/Vomiting Last Admin: 03/24/18 03:58 Dose: 10 mg Metoprolol Succinate (Toprol Xl) 50 mg PO DAILY [facility] Last Admin: 03/25/18 11:00 Dose: 50 mg Ondansetron HCl (Zofran Inj) 4 mg IVP Q4 PRN PRN Reason: Nausea/Vomiting Last Admin: 03/23/18 12:17 Dose: 4 mg Pantoprazole Sodium (Protonix Inj) 40 mg IVP DAILY [facility] Last Admin: 03/25/18 11:00 Dose: 40 mg Potassium Chloride (K-Dur 20 Meq Er Tab) 40 meq PO DAILY [facility] Last Admin: 03/25/18 11:00 Dose: 40 meq Potassium Phos/Sodium Phos (Neutra-Phos) 1 pkt PO DAILY [facility] Last Admin: 03/25/18 11:00 Dose: 1 pkt Rosuvastatin Calcium (Crestor) 10 mg PO HS [facility] Last Admin: 03/24/18 21:09 Dose: 10 mg Sodium Chloride (Sodium Chloride Tab) 1 gm PO BID [facility] Last Admin: 03/25/18 11:00 Dose: 1 gm Zolpidem Tartrate (Ambien) 2.5 mg PO HS PRN PRN Reason: Insomnia Last Admin: 03/24/18 21:11 Dose: 2.5 mg - Labs Labs: 03/25/18 07:52 03/25/18 07:52 PT 12.5 SECONDS (9.7-12.2) H 03/18/18 13:43 INR 1.1 03/18/18 13:43 APTT 31 SECONDS (21-34) 03/18/18 13:43
[2018-03-26] MEDS: Metoprolol Succinate 50 mg XL Tab PO SCH (10:03)
[2018-03-26] MEDS: Potassium Chloride 20 mEq ER Tab PO SCH (10:03)
[2018-03-26] MEDS: Potassium & Sodium Phosphate PO SCH (10:04)
[2018-03-26] MEDS: Potassium Ch 20mEq in D5-1/2NS 1,000 ML IV SCH (14:22)
[2018-03-26 16:36] VITALS: BP 145/77; PULSE 85; TEMP 98; O2SAT 98
--- NOTE | 2018-03-26 17:19 | CP.PCM.PN ---
Subjective - Date & Time of Evaluation Date of Evaluation: 03/26/18 Time of Evaluation: 17:19 - Subjective Subjective: alert, awake, no sob or chest pains. Objective - Vital Signs/Intake and Output Vital Signs (last 24 hours): Temp Pulse Resp BP Pulse Ox 98 F 85 20 145/77 98 03/26/18 16:00 03/26/18 16:00 03/26/18 16:00 03/26/18 16:00 03/26/18 16:00 Intake and Output: 03/26/18 03/26/18 06:59 18:59 Intake Total 1080 500 Balance 1080 500 - Medications Medications: Current Medications Acetaminophen (Tylenol 325mg Tab) 650 mg PO Q6 PRN PRN Reason: Fever >100.4 F Last Admin: 03/25/18 06:10 Dose: 650 mg Albuterol/Ipratropium (Duoneb 3 Mg/0.5 Mg (3 Ml) Ud) 3 ml INH RQ6 PRN PRN Reason: Shortness of Breath Last Admin: 03/24/18 09:01 Dose: 3 ml Aspirin (Ecotrin) 81 mg PO DAILY [facility] Last Admin: 03/26/18 10:04 Dose: 81 mg Potassium Chloride/Dextrose/Sod Cl (Potassium Chl 20 Meq In D5-1/2ns) 1,000 mls @ 40 mls/hr IV .Q24H [facility] Last Admin: 03/26/18 14:22 Dose: Not Given Metoclopramide HCl (Reglan) 10 mg IVP Q8 PRN PRN Reason: Nausea/Vomiting Last Admin: 03/24/18 03:58 Dose: 10 mg Metoprolol Succinate (Toprol Xl) 50 mg PO DAILY [facility] Last Admin: 03/26/18 10:03 Dose: 50 mg Ondansetron HCl (Zofran Inj) 4 mg IVP Q4 PRN PRN Reason: Nausea/Vomiting Last Admin: 03/23/18 12:17 Dose: 4 mg Pantoprazole Sodium (Protonix Inj) 40 mg IVP DAILY [facility] Last Admin: 03/26/18 10:04 Dose: 40 mg Potassium Chloride (K-Dur 20 Meq Er Tab) 40 meq PO DAILY [facility] Last Admin: 03/26/18 10:03 Dose: 40 meq Potassium Phos/Sodium Phos (Neutra-Phos) 1 pkt PO DAILY [facility] Last Admin: 03/26/18 10:04 Dose: 1 pkt Rosuvastatin Calcium (Crestor) 10 mg PO HS [facility] Last Admin: 03/25/18 21:27 Dose: 10 mg Sodium Chloride (Sodium Chloride Tab) 1 gm PO BID [facility] Last Admin: 03/26/18 10:10 Dose: Not Given Zolpidem Tartrate (Ambien) 2.5 mg PO HS PRN PRN Reason: Insomnia Last Admin: 03/25/18 21:29 Dose: 2.5 mg - Labs Labs: 03/25/18 07:52 03/25/18 07:52 PT 12.5 SECONDS (9.7-12.2) H 03/18/18 13:43 INR 1.1 03/18/18 13:43 APTT 31 SECONDS (21-34) 03/18/18 13:43 Assessment and Plan - Assessment and Plan (Free Text) Assessment: 77 year old female, s/p laparoscopic appendectomy, improving slowly, seen and examined. Alert and orientedx3, ambulates with assistance. Tolerating regular diet, cleared by surgery today. Discussed with DR Flannery, plan to discharge home today. Home care, home PT arranged. Advised to follow up with PMD in 1 week.
--- NOTE | 2018-03-26 17:40 | CP.PCM.PN ---
Subjective - Date & Time of Evaluation Date of Evaluation: 03/26/18 Time of Evaluation: 10:00 - Subjective Subjective: GENERAL SURGERY PROGRESS NOTE FOR DR. BANSAL Patient seen and examined at bedside. She is OOB and ambulating. She is tolerating her diet, denies nausea or vomiting. She is having bowel movements and passing flatus. Objective - Vital Signs/Intake and Output Vital Signs (last 24 hours): Temp Pulse Resp BP Pulse Ox 98 F 85 20 145/77 98 03/26/18 16:00 03/26/18 16:00 03/26/18 16:00 03/26/18 16:00 03/26/18 16:00 Intake and Output: 03/26/18 03/26/18 06:59 18:59 Intake Total 1080 500 Balance 1080 500 - Medications Medications: Current Medications Acetaminophen (Tylenol 325mg Tab) 650 mg PO Q6 PRN PRN Reason: Fever >100.4 F Last Admin: 03/25/18 06:10 Dose: 650 mg Albuterol/Ipratropium (Duoneb 3 Mg/0.5 Mg (3 Ml) Ud) 3 ml INH RQ6 PRN PRN Reason: Shortness of Breath Last Admin: 03/24/18 09:01 Dose: 3 ml Aspirin (Ecotrin) 81 mg PO DAILY [facility] Last Admin: 03/26/18 10:04 Dose: 81 mg Potassium Chloride/Dextrose/Sod Cl (Potassium Chl 20 Meq In D5-1/2ns) 1,000 mls @ 40 mls/hr IV .Q24H [facility] Last Admin: 03/26/18 14:22 Dose: Not Given Metoclopramide HCl (Reglan) 10 mg IVP Q8 PRN PRN Reason: Nausea/Vomiting Last Admin: 03/24/18 03:58 Dose: 10 mg Metoprolol Succinate (Toprol Xl) 50 mg PO DAILY [facility] Last Admin: 03/26/18 10:03 Dose: 50 mg Ondansetron HCl (Zofran Inj) 4 mg IVP Q4 PRN PRN Reason: Nausea/Vomiting Last Admin: 03/23/18 12:17 Dose: 4 mg Pantoprazole Sodium (Protonix Inj) 40 mg IVP DAILY [facility] Last Admin: 03/26/18 10:04 Dose: 40 mg Potassium Chloride (K-Dur 20 Meq Er Tab) 40 meq PO DAILY [facility] Last Admin: 03/26/18 10:03 Dose: 40 meq Potassium Phos/Sodium Phos (Neutra-Phos) 1 pkt PO DAILY [facility] Last Admin: 03/26/18 10:04 Dose: 1 pkt Rosuvastatin Calcium (Crestor) 10 mg PO HS [facility] Last Admin: 03/25/18 21:27 Dose: 10 mg Sodium Chloride (Sodium Chloride Tab) 1 gm PO BID [facility] Last Admin: 03/26/18 10:10 Dose: Not Given Zolpidem Tartrate (Ambien) 2.5 mg PO HS PRN PRN Reason: Insomnia Last Admin: 03/25/18 21:29 Dose: 2.5 mg - Labs Labs: 03/25/18 07:52 03/25/18 07:52 PT 12.5 SECONDS (9.7-12.2) H 03/18/18 13:43 INR 1.1 03/18/18 13:43 APTT 31 SECONDS (21-34) 03/18/18 13:43 Assessment and Plan - Assessment and Plan (Free Text) Assessment: 77yo F with appendicitis s/p laparoscopic appendectomy POD#8 with post op ileus - Tolerating diet and having bowel function - Clear for DC home with PT from surgical standpoint - Follow up with Dr. Bansal in her office in 1 week - Avoid heavy lifting for 4 weeks - May shower but do not take a bath or swim for 2 weeks - Discussed plan with Dr. Rolf Jennings PGY-4
--- NOTE | 2018-03-26 23:18 | CP.PCM.DIS ---
Provider - Provider Date of Admission: 03/18/18 15:59 Attending physician: Durga Flannery MD Time Spent in preparation of Discharge (in minutes): 25 Hospital Course - Lab Results Lab Results: Micro Results 03/19/18 15:06 Urine Urine Culture - Final No Growth (<1,000 CFU/ML) Most Recent Lab Values WBC 6.7 K/uL (4.8-10.8) 03/25/18 07:52 RBC 4.06 Mil/uL (3.80-5.20) 03/25/18 07:52 Hgb 12.1 g/dL (11.0-16.0) 03/25/18 07:52 Hct 34.6 % (34.0-47.0) 03/25/18 07:52 MCV 85.2 fL (81.0-99.0) 03/25/18 07:52 MCH 29.9 pg (27.0-31.0) 03/25/18 07:52 MCHC 35.1 g/dL (33.0-37.0) 03/25/18 07:52 RDW 13.9 % (11.5-14.5) 03/25/18 07:52 Plt Count 246 K/uL (130-400) 03/25/18 07:52 MPV 8.0 fL (7.2-11.7) 03/25/18 07:52 Neut % (Auto) 82.6 % (50.0-75.0) H 03/22/18 07:51 Lymph % (Auto) 6.9 % (20.0-40.0) L 03/22/18 07:51 [place] % (Auto) 8.3 % (0.0-10.0) 03/22/18 07:51 Eos % (Auto) 1.9 % (0.0-4.0) 03/22/18 07:51 Baso % (Auto) 0.3 % (0.0-2.0) 03/22/18 07:51 Neut # (Auto) 6.4 K/uL (1.8-7.0) 03/22/18 07:51 Lymph # (Auto) 0.5 K/uL (1.0-4.3) L 03/22/18 07:51 [place] # (Auto) 0.6 K/uL (0.0-0.8) 03/22/18 07:51 Eos # (Auto) 0.1 K/uL (0.0-0.7) 03/22/18 07:51 Baso # (Auto) 0.0 K/uL (0.0-0.2) 03/22/18 07:51 Neutrophils % (Manual) 89 % (50-75) H 03/22/18 07:51 Band Neutrophils % 9 % (0-2) H 03/21/18 07:00 Lymphocytes % (Manual) 10 % (20-40) L 03/22/18 07:51 Monocytes % (Manual) TEST NOT PERFORMED 03/22/18 07:51 Eosinophils % (Manual) 1 % (0-4) 03/22/18 07:51 Platelet Estimate Normal (NORMAL) 03/22/18 07:51 RBC Morphology Normal 03/22/18 07:51 Hypochromasia (manual) Slight 03/20/18 08:27 Poikilocytosis (manual Slight 03/21/18 07:00 Anisocytosis (manual) Slight 03/21/18 07:00 Ovalocytes Slight 03/21/18 07:00 PT 12.5 SECONDS (9.7-12.2) H 03/18/18 13:43 INR 1.1 03/18/18 13:43 APTT 31 SECONDS (21-34) 03/18/18 13:43 pO2 24 mm/Hg (30-55) L 03/18/18 13:48 VBG pH 7.53 (7.32-7.43) H 03/18/18 13:48 VBG pCO2 32 mmHg (40-60) L 03/18/18 13:48 VBG HCO3 27.2 mmol/L 03/18/18 13:48 VBG Total CO2 27.7 mmol/L (22-28) 03/18/18 13:48 VBG O2 Sat (Calc) 51.7 % (40-65) 03/18/18 13:48 VBG Base Excess 4.4 mmol/L (0.0-2.0) H 03/18/18 13:48 VBG Potassium 3.4 mmol/L (3.6-5.2) L 03/18/18 13:48 Sodium 139.0 mmol/l (132-148) 03/18/18 13:48 Chloride 106.0 mmol/L (98-107) 03/18/18 13:48 Glucose 99 mg/dl (65-105) 03/18/18 13:48 Lactate 1.1 mmol/L (0.7-2.1) 03/18/18 13:48 Sodium 126 mmol/L (132-148) L 03/25/18 07:52 Potassium 3.7 mmol/L (3.6-5.2) 03/25/18 07:52 Chloride 97 mmol/L (98-107) L 03/25/18 07:52 Carbon Dioxide 22 mmol/L (22-30) 03/25/18 07:52 Anion Gap 12 (10-20) 03/25/18 07:52 BUN 7 mg/dL (7-17) 03/25/18 07:52 Creatinine 0.6 mg/dL (0.7-1.2) L 03/25/18 07:52 Est GFR ( Amer) > 60 03/25/18 07:52 Est GFR (Non-Af Amer) > 60 03/25/18 07:52 Random Glucose 112 mg/dL (65-105) H 03/25/18 07:52 Calcium 8.5 mg/dl (8.6-10.4) L 03/25/18 07:52 Phosphorus 2.9 mg/dL (2.5-4.5) 03/25/18 07:52 Magnesium 1.9 mg/dL (1.6-2.3) 03/25/18 07:52 Total Bilirubin 0.8 mg/dL (0.2-1.3) 03/18/18 13:19 AST 21 U/L (14-36) 03/18/18 13:19 ALT 18 U/L (9-52) 03/18/18 13:19 Alkaline Phosphatase 65 U/L (38-126) 03/18/18 13:19 Total Protein 7.5 g/dL (6.3-8.3) 03/18/18 13:19 Albumin 4.3 g/dL (3.5-5.0) 03/18/18 13:19 Globulin 3.3 gm/dL (2.2-3.9) 03/18/18 13:19 Albumin/Globulin Ratio 1.3 (1.0-2.1) 03/18/18 13:19 Lipase 68 U/L (23-300) 03/18/18 13:19 Venous Blood Potassium 3.4 mmol/L (3.6-5.2) L 03/18/18 13:48 Urine Color Yellow (YELLOW) 03/18/18 15:34 Urine Clarity Clear (Clear) 03/18/18 15:34 Urine pH 7.0 (5.0-8.0) 03/18/18 15:34 Ur Specific [place] 1.028 (1.003-1.030) 03/18/18 15:34 Urine Protein Negative mg/dL (NEGATIVE) 03/18/18 15:34 Urine Glucose (UA) Normal mg/dL (Normal) 03/18/18 15:34 Urine Ketones Trace mg/dL (NEGATIVE) 03/18/18 15:34 Urine Blood Negative (NEGATIVE) 03/18/18 15:34 Urine Nitrate Negative (NEGATIVE) 03/18/18 15:34 Urine Bilirubin Negative (NEGATIVE) 03/18/18 15:34 Urine Urobilinogen Normal mg/dL (0.2-1.0) 03/18/18 15:34 Ur Leukocyte Esterase 1+ [place]/uL (Negative) H 03/18/18 15:34 Urine WBC (Auto) 4 /hpf (0-5) 03/18/18 15:34 Urine RBC (Auto) 1 /hpf (0-3) 03/18/18 15:34 Ur Squamous Epith Cells 4 /hpf (0-5) 03/18/18 15:34 Blood Type A NEGATIVE 03/18/18 13:37 Antibody Screen Negative 03/18/18 13:37 Discharge Exam - Head Exam Head Exam: ATRAUMATIC, NORMOCEPHALIC Discharge Plan - Discharge Medications Prescriptions: Phosphorus/Potassium/Sodium [Neutra-Phos] 1 pkt PO DAILY 7 Days packet - Follow Up Plan Condition: SERIOUS Disposition: HOME/ ROUTINE Instructions: Appendectomy, Laparoscopic Surgery Additional Instructions: - Follow up with Dr. Bansal in her office in 1 week, call to make appointment - Avoid heavy lifting for 4 weeks - May shower but do not take a bath or swim for 2 weeks - Leave steri strips in place, they will fall off on their own Referrals: Durga Flannery MD [Staff Provider] -
== END 2018-03-26 19:33 | disposition home or self-care (01) | DRG 342 ==
LOC: C.ER 12:33 → C.9E 15:59 → C.3T 16:49
PROVIDERS: ADMIT Internal Medicine Critical Care Medicine; ATTEND Internal Medicine Critical Care Medicine
PROC: 0DTJ4ZZ Resection of Appendix, Percutaneous Endoscopic Approach (ICD-10-PCS; principal; 2018-03-19)
PROC: 0D9670Z Drainage of Stomach with Drainage Device, Via Natural or Artificial Opening (ICD-10-PCS; 2018-03-21)
DX: K35.80 Unspecified acute appendicitis (principal); K56.7 Ileus, unspecified; K91.89 Other postprocedural complications and disorders of digestive system; K38.1 Appendicular concretions; E87.6 Hypokalemia; J45.909 Unspecified asthma, uncomplicated; I10 Essential (primary) hypertension; E78.5 Hyperlipidemia, unspecified; E78.00 Pure hypercholesterolemia, unspecified; M81.0 Age-related osteoporosis without current pathological fracture; Z87.891 Personal history of nicotine dependence